=== PATIENT | female | born 1940 | race Caucasian/White ===

== ENCOUNTER 2016-11-09 14:33 | Emergency (ER) | payer OTHER ==
[2016-11-09 14:38] VITALS: BP 116/60; PULSE 69; BMI 20.2
--- NOTE | 2016-11-09 16:01 | PDOC ---
History of Present Illness <Duke Burden - Last Filed: 11/09/16 17:39> - General History Source: Patient, Spouse, Old Records Exam Limitations: No Limitations - History of Present Illness Initial Comments: 11/09/16 16:38 The patient is a 76 year old female, with a significant past medical history of asthma, COPD, hyperlipidemia, diabetes, TIA, hiatal hernia and mild progressive dementia, who presents to the emergency department with right eye redness and blurry vision since earlier this morning. The patients is with her in the ED. He states that the patient was endorsing a right sided headache this morning which has now resolved. Shortly after the onset of the headache, the patient began experiencing blurry vision out of the right eye in addition to right eye redness. The patient denies any eye pain. The patient denies any trauma to the eye. The patient was subsequently brought to the ED for further evaluation. Allergies: Diatrizoate Meglumine, Diatrizoate Sodium, CT scan dye. Past Surgical History: Appendectomy; Right Rotator Cuff Surgery. Social History: Non smoker. Denies alcohol or drug use. PCP: Dr. Souza <Katie Meza - Last Filed: 11/09/16 17:45> - General Chief Complaint: Headache Stated Complaint: RED RT EYE Time Seen by Provider: 11/09/16 16:01 Past History - Past Medical History Anemia: No Asthma: Yes Cancer: No Cardiac Disorders: (SLIGHT RT SIDED CHEST PAIN 12/13/2011) CVA: Yes (TIA) COPD: Yes CHF: No Dementia: No Diabetes: Yes (IDDM) GI Disorders: Yes (HIATAL HERNIA) Disorders: No HTN: No Hypercholesterolemia: Yes Liver Disease: No Seizures: No Thyroid Disease: No - Surgical History Abdominal Surgery: No Appendectomy: Yes Cardiac Surgery: No Cholecystectomy: No Lung Surgery: No Neurologic Surgery: No Orthopedic Surgery: Yes (RT ROTATED CUFF SHOULDER SURGERY) - Immunization History Immunization Up to Date: Yes - Psycho/Social/Smoking Cessation Hx Anxiety: No Suicidal Ideation: No Smoking Status: No Smoking History: Never smoked Have you smoked in the past 12 months: No Number of Cigarettes Smoked Daily: 0 Hx Alcohol Use: No Drug/Substance Use Hx: No Substance Use Type: None Hx Substance Use Treatment: No <Duke Burden - Last Filed: 11/09/16 17:39> <Katie Meza - Last Filed: 11/09/16 17:45> - Past Medical History Allergies/Adverse Reactions: Allergies Allergy/AdvReac Type Severity Reaction Status Date / Time diatrizoate meglumine Allergy Severe Verified 11/09/16 14:39 [From [facility]] diatrizoate sodium Allergy Severe Verified 11/09/16 14:39 [From [facility]] ct scan dye Allergy Severe Difficulty Uncoded 11/09/16 14:39 Breathing Home Medications: Ambulatory Orders Albuterol 0.083% Nebulizer Suri [Ventolin 0.083% Nebulizer Soln -] 1 neb NEB ASDIR PRN 05/12/14 Albuterol Sulfate Inhaler - [Ventolin HFA Inhaler -] 1 - 2 inh PO ASDIR PRN Alprazolam 0.25 mg PO BID PRN 05/12/14 Budesonide/Formeterol Fumarate [SYMBICORT 160/4.5mcg -] 2 inh PO BID 05/12/14 Insulin (Levemir) [Levemir Flexpen -] 9 units SQ BID 05/12/14 Insulin Lispro Protamin/Lispro [Humalog Mix 75-25 Kwikpen] 100 unit SQ ASDIR Memantine HCl [Namenda Xr] 28 mg PO DAILY 05/12/14 Montelukast Na [Singulair -] 10 mg PO HS 05/12/14 Ranitidine [Zantac -] 150 mg PO BID 05/12/14 Rivastigmine [Exelon Patch 4.6MG/24 Hours -] 1 each TD DAILY 05/12/14 Simvastatin [Zocor -] 20 mg PO HS 05/12/14 Tiotropium [place] [Spiriva] 1 inh PO DAILY 05/12/14 Albuterol 0.083% Nebulizer Suri [Ventolin 0.083%] 1 neb NEB Q4H PRN 09/23/14 Albuterol Sulfate Inhaler - [Ventolin HFA Inhaler -] 1 - 2 inh PO Q4H PRN Alprazolam 0.25 mg PO BID 09/23/14 Budesonide/Formeterol Fumarate [SYMBICORT 160/4.5mcg -] 1 inh PO BID 09/23/14 Escitalopram Oxalate [Lexapro -] 10 mg PO DAILY 09/23/14 Glipizide [Glipizide ER] 5 mg PO DAILY 09/23/14 Insulin (Levemir) [Levemir Flexpen -] 8 units SQ BID 09/23/14 Insulin NPL/Insulin Lispro [Humalog Mix 75-25 Vial] 0 unit SQ ASDIR 09/23/14 Memantine HCl [Namenda Xr] 28 mg PO DAILY 09/23/14 Montelukast Na [Singulair -] 10 mg PO HS 09/23/14 Simvastatin [Zocor -] 20 mg PO HS 09/23/14 Tiotropium [place] [Spiriva -] 1 inh PO DAILY 09/23/14 Review of Systems - Review of Systems Able to Perform ROS?: Yes Comments:: 11/09/16 16:35 CONSTITUTIONAL: No fever, no chills, no fatigue EYES: +Right eye redness, Blurry vision ENT: No ear pain, no sore throat CARDIOVASCULAR: No chest pain, no palpitations RESPIRATORY: No cough, no SOB GI: No abdominal pain, no nausea, no vomiting, no constipation, no diarrhea GENITOURINARY: No dysuria, no frequency, no hematuria MUSKULOSKELETAL: No back pain, no joint pain, no myalgias SKIN: No rash NEURO: No headache <Katie Meza - Last Filed: 11/09/16 17:45> *Physical Exam - Vital Signs Last Vital Signs Temp Pulse Resp BP Pulse Ox 69 16 116/60 100 11/09/16 14:34 11/09/16 14:34 11/09/16 14:34 11/09/16 14:34 - Physical Exam Comments: EYES: OD: VA-Patient is able to count fingers at 2 feet with corrective lenses ; lids are normal; + extensive subconjunctival hemorrhage; cornea is clear; pupil is round, 2 mm, reactive to light; Iris is intact; OS: VA-20/40; lids and adnexa are within normal; cornea and conjunctiva are clear; pupil is round, 2 mm, reactive to light; Iris is intact; extraocular movements are intact bilaterally <Duke Burden - Last Filed: 11/09/16 17:39> - Vital Signs Last Vital Signs Temp Pulse Resp BP Pulse Ox 69 16 116/60 100 11/09/16 14:34 11/09/16 14:34 11/09/16 14:34 11/09/16 14:34 - Physical Exam Comments: 11/09/16 16:23 CONSTITUTIONAL: Well-appearing; well-nourished; in no apparent distress. HEAD: Normocephalic; atraumatic. ENMT: External appears normal; normal oropharynx. NECK: Supple; non-tender; no cervical lymphadenopathy. CARD: Normal S1, S2; no murmurs, rubs, or gallops. RESP: Normal chest excursion with respiration; breath sounds clear and equal bilaterally; no wheezes, rhonchi, or rales. ABD: Soft, non-distended; non-tender; no palpable organomegaly, no palpable hernias. EXT: Normal ROM in all four extremities; non-tender to palpation; distal pulses intact. SKIN: Warm, dry, no rash. NEURO: No focal neurological deficiencies. <Katie Meza - Last Filed: 11/09/16 17:45> Medical Decision Making - Medical Decision Making 11/09/16 17:41 Patient 76-year-old female with history of diabetes, dementia and asthma presents with atraumatic right subconjunctival hemorrhage and right temporal headache that had resolved shortly prior to arrival. Patient and her report the headache is typical and does not represent worst headache of her life. On physical exam, patient has an extensive subconjunctival hemorrhage in her visual acuity is limited to counting fingers at 2 feet with corrective lenses. I discussed the case with Dr. Mohr of ophthalmology. Patient's visual acuity is at baseline. At this time I do not suspect glaucoma or any other potentially vision threatening pathology. Will discharge with scheduled follow- up and subconjunctival hemorrhage instructions. <Duke Burden - Last Filed: 11/09/16 17:39> - Medical Decision Making 11/09/16 16:19 Call placed to patient's talent development consultant Dr. Luis A Mohr at 16: 15. Connected and case discussed. <Katie Meza - Last Filed: 11/09/16 17:45> *DC/Admit/Observation/Transfer - Attestations Physician Attestion: 11/09/16 17:39 The documentation was prepared by the scribe under my direct supervision. I have reviewed the documentation which correctly represents the findings, medical decision-making and critical action taken by me. <Duke Burden - Last Filed: 11/09/16 17:39> - Attestations Scribe Attestion: 11/09/16 16:14 Documentation prepared by Katie Meza, acting as medical records supervisor for Duke Burden MD. <Katie Meza - Last Filed: 11/09/16 17:45> Diagnosis at time of Disposition: Subconjunctival hemorrhage Qualifiers: Laterality: right Qualified Code(s): H11.31 - Conjunctival hemorrhage, right eye - Discharge Dispostion Disposition: HOME Condition at time of disposition: Stable - Referrals Referrals: David Souza MD [Primary Care Provider] - Luis A Mohr [Staff Physician] - - Patient Instructions Printed Discharge Instructions: DI for Subconjunctival Hemorrhage
== END 2016-11-09 16:53 | disposition home or self-care (01) ==
LOC: JER 14:33
DX: H11.31 Conjunctival hemorrhage, right eye (principal); E11.9 Type 2 diabetes mellitus without complications; Z79.4 Long term (current) use of insulin; E78.00 Pure hypercholesterolemia, unspecified; Z86.73 Personal history of transient ischemic attack (TIA), and cerebral infarction without residual deficits; Z87.09 Personal history of other diseases of the respiratory system
CPT/HCPCS: 99281-25

== ENCOUNTER 2017-03-05 23:12 | Observation (INO) | payer OTHER ==
[2017-03-05] MEDS ORDERED: ASPIRIN 81 MG CHEWABLE TABLETS PO ONE (23:44)
--- NOTE | 2017-03-05 23:44 | PDOC ---
History of Present Illness - General History Source: Patient Exam Limitations: No Limitations <Bailey Pool - Last Filed: 03/06/17 01:48> <Gaby Montejo - Last Filed: 03/07/17 02:10> - General Stated Complaint: DIFFICULTY BREATHING Time Seen by Provider: 03/05/17 23:31 - History of Present Illness Initial Comments: 03/05/17 23:53 The patient is a 76 year old female with past medical history of dementia, COPD , asthma, IDDM, hyperlipidemia, and TIA who arrives to the ED via EMS secondary to a syncopal episode before arrival. As per the family, the patient was sitting at the table when she began to slump down in her chair and remained unarousable for about 15 minutes. When she regained consciousness, she complained of mild shortness of breath in which the family administered her Ventolin inhaler. In the ED the patient denies any complaints and cannot provide much history secondary to her dementia. She denies any fever or illness. Allergies: Diatrizoate Social history: The patient lives at home with her . PCP: [facility] Souza ([facility]) Past History <Bailey Pool - Last Filed: 03/06/17 01:48> - Past Medical History Anemia: No Asthma: Yes Cancer: No Cardiac Disorders: (SLIGHT RT SIDED CHEST PAIN 12/13/2011) CVA: Yes (TIA) COPD: Yes CHF: No Dementia: No Diabetes: Yes (IDDM) GI Disorders: Yes (HIATAL HERNIA) Disorders: No HTN: No Hypercholesterolemia: Yes Liver Disease: No Seizures: No Thyroid Disease: No - Surgical History Abdominal Surgery: No Appendectomy: Yes Cardiac Surgery: No Cholecystectomy: No Lung Surgery: No Neurologic Surgery: No Orthopedic Surgery: Yes (RT ROTATED CUFF SHOULDER SURGERY) - Immunization History Immunization Up to Date: Yes - Psycho/Social/Smoking Cessation Hx Anxiety: No Suicidal Ideation: No Smoking Status: No Smoking History: Never smoked Have you smoked in the past 12 months: No Number of Cigarettes Smoked Daily: 0 Hx Alcohol Use: No Drug/Substance Use Hx: No Substance Use Type: None Hx Substance Use Treatment: No <GustaboGiorgioa Trini - Last Filed: 03/07/17 02:10> - Past Medical History Allergies/Adverse Reactions: Allergies Allergy/AdvReac Type Severity Reaction Status Date / Time diatrizoate meglumine Allergy Severe Verified 03/05/17 23:57 [From [facility]] diatrizoate sodium Allergy Severe Verified 03/05/17 23:57 [From [facility]] ct scan dye Allergy Severe Difficulty Uncoded 03/05/17 23:57 Breathing Home Medications: Ambulatory Orders Albuterol 0.083% Nebulizer Suri [Ventolin 0.083% Nebulizer Soln -] 1 neb NEB ASDIR PRN 05/12/14 Albuterol Sulfate Inhaler - [Ventolin HFA Inhaler -] 1 - 2 inh PO ASDIR PRN Insulin (Levemir) [Levemir Flexpen -] 14 units SQ BID 05/12/14 Memantine HCl [Namenda Xr] 28 mg PO DAILY 05/12/14 Montelukast Na [Singulair -] 10 mg PO HS 05/12/14 Rivastigmine [Exelon Patch 4.6MG/24 Hours -] 1 each TD DAILY 05/12/14 Simvastatin [Zocor -] 20 mg PO HS 05/12/14 Glipizide [Glipizide ER] 5 mg PO AC 09/23/14 Tiotropium [place] [Spiriva -] 1 inh PO DAILY 09/23/14 Cyanocobalamin [Vitamin B12 -] 1,000 mcg PO DAILY 03/06/17 Insulin (Novolog) [Novolog Flexpen] 0 units SQ ACHS 03/06/17 Cardiac Specific PMH - Complaint Specific PMHX Angina: No Pacemaker: No Pulmonary Embolus: No <Gaby Montejo - Last Filed: 03/07/17 02:10> Review of Systems - Review of Systems Able to Perform ROS?: No (dementia) <Bailey Pool - Last Filed: 03/06/17 01:48> *Physical Exam <Bailey Pool - Last Filed: 03/06/17 01:48> <Gaby Montejo - Last Filed: 03/07/17 02:10> - Vital Signs Last Vital Signs Temp Pulse Resp BP Pulse Ox 98.2 F 76 17 127/78 98 03/05/17 23:13 03/06/17 06:20 03/06/17 06:20 03/06/17 06:20 03/06/17 06:20 - Physical Exam Comments: 03/05/17 23:54 GENERAL: Well developed, well nourished. Awake and alert. No acute distress. HEENT: Normocephalic, atraumatic. PERRLA, EOMI. No conjunctival pallor. Sclera are non- icteric. Moist mucous membranes. Oropharynx is clear. NECK: Supple. Full ROM. No JVD. Carotid pulses 2+ and symmetric, without bruits. No thyromegaly. No lymphadenopathy. CARDIOVASCULAR: Regular rate and rhythm. No murmurs, rubs, or gallops. Distal pulses are 2+ and symmetric. PULMONARY: No evidence of respiratory distress. Lungs clear to auscultation bilaterally. No wheezing, rales or rhonchi. ABDOMINAL: Soft. Non-tender. Non-distended. No rebound or guarding. No organomegaly. Normoactive bowel sounds. MUSCULOSKELETAL Normal range of motion at all joints. No bony deformities or tenderness. No CVA tenderness. EXTREMITIES: No cyanosis. No clubbing. No edema. No calf tenderness. SKIN: Warm and dry. Normal capillary refill. No rashes. No jaundice. NEUROLOGICAL: Alert, awake, appropriate. Cranial nerves 2-12 intact. No deficits to light touch and temperature in face, upper extremities and lower extremities. No motor deficits in the in face, upper extremities and lower extremities. Normoreflexic in the upper and lower extremities. Normal speech. Toes are down-going bilaterally. Gait is normal without ataxia. PSYCHIATRIC: Cooperative. Good eye contact. Appropriate mood and affect. (Bailey Pool) Heart Score/ECG Review <[facility] - Last Filed: 03/06/17 01:48> - History History: Slightly suspicious - Electrocardiogram EKG: Normal - Age Age: >/= 65 - Risk Factors Risk Factors Heart Score: Yes Hx Hypertension, Yes Hx Diabetes Based on the list above the patient has:: 1-2 risk factors - Troponin Troponin: </= normal limit - Score Heart Score - Total: 3 - ECG Intrepretation Rhythm: Regular Rhythm - [place]: Normal - P and TN Prominent R with upright T in V1 (true posterior [place]): No Delta Wave(s) Present: No WPW: No - QRS Poor R Wave Progression: No Q Wave Present: No - ST and T Early Repolarization: No Non Specific ST-T Wave changes: No Flattened T Waves: No Prolonged Q-T Interval: No - ECG Impressions Normal ECG: Yes Non-specific ST Elevation: No Ischemic Changes: No Bradycardia: No [place] Pointes: No WPW: No <Gaby Montejo - Last Filed: 03/07/17 02:10> - ECG Intrepretation Comment:: 03/06/17 00:17 ECG obtained at 0:10 normal sinus at 66bpm (Bailey Pool) ED Treatment Course - LABORATORY CBC & Chemistry Diagram: 03/06/17 00:01 03/06/17 00:01 <Bailey Pool - Last Filed: 03/06/17 01:48> - LABORATORY CBC & Chemistry Diagram: 03/06/17 00:01 03/06/17 00:01 <Gaby Montejo - Last Filed: 03/07/17 02:10> - ADDITIONAL ORDERS Additional order review: 03/06/17 00:01 RBC 4.54 MCV 94.6 MCHC 33.6 RDW 13.3 MPV 8.6 Neutrophils % 68.4 Lymphocytes % 19.4 D Monocytes % 10.8 H Eosinophils % 0.7 Basophils % 0.7 - RADIOLOGY Radiology Studies Ordered: Category Date Time Status HEAD CT WITHOUT CONTRAST [CT] Stat CT Scan 03/06/17 00:01 Completed CHEST X-RAY PORTABLE* [RAD] Stat Radiology 03/05/17 23:45 Completed Radiograph Interpretation: 03/06/17 01:24 EXAM: CT brain without contrast IMAGES: 368 EXAM DATE AND TIME: 2017-03-06 00: 16:24.0 REASON FOR EXAM: Unresponsive COMPARISON: No FINDINGS: Involutional changes. No hemorrhage. No mass. No detectable infarct. Osseous structures are intact. THIS DOCUMENT HAS BEEN ELECTRONICALLY SIGNED Joby Wong MD ([facility]) - Medications Given in the ED: ED Medications Discontinued Medications Generic Name Dose Route Start Last Admin Trade Name Freq PRN Reason Stop Dose Admin Aspirin 162 mg 03/05/17 23:44 03/06/17 02:45 Asa - PO 03/05/17 23:45 Not Given ONCE ONE Medical Decision Making <Bailey Pool - Last Filed: 03/06/17 01:48> <Gaby Montejo - Last Filed: 03/07/17 02:10> - Medical Decision Making 03/06/17 01:48 Phone call placed to Dr. Souza, awaiting call back. (Bailey Pool) 03/06/17 00:55 76 yo female FRANCI because her said she had been slumped over the arm of her chair and not responsive for 15 minutes. Her reported that she appeared to have respiratory distress , once she woke up and was given her ventolin inhaler, -she was 100% pulse ox on room air in the emergency department -upon arrival the patient was alert and conversant.she has dementia and is not a good historian -ekg is unremarkable nsr @ 66 bpm 03/06/17 02:12 CAT scan of the head was negative for any acute intracranial pathology Urinalysis was negative Chest x-ray did not show any acute infiltrates CBC showed a mild leukocytosis of 12,000, but she does take steroids daily (Gaby Montejo) *DC/Admit/Observation/Transfer <Bailey Pool - Last Filed: 03/06/17 01:48> <Gaby Montejo - Last Filed: 03/07/17 02:10> Diagnosis at time of Disposition: AMA - Signed out against medical advice, Syncope - Discharge Dispostion Disposition: AGAINST MEDICAL ADVICE - Referrals Referrals: David Souza MD [Primary Care Provider] - - Patient Instructions Printed Discharge Instructions: DI for Syncope in Adults (Fainting) Additional Instructions: Follow up with your doctor. Be sure to return if symptoms reoccur or any other concerns. Continue medications as prescribed. - Attestations Scribe Attestion: 03/05/17 23:55 Documentation prepared by Bailey Pool, acting as medical front desk coordinator for Gaby Montejo MD. (Bailey Pool)
[2017-03-06 00:06] VITALS: TEMP 98.2; BMI 20.7
[2017-03-06 00:28] LABS: BASOPHIL 0.7 % (0-2.0); EOSINOPHIL 0.7 % (0-4.5); MCH 31.7 pg (25.7-33.7); MCHC 33.6 g/dl (32.0-36.0); MEAN CELL VOLUME 94.6 fl (80-96); MEAN PLT VOLUME 8.6 fl (7.5-11.1); NEUTROPHILS 68.4 % (42.8-82.8); PLATELET COUNT 259 K/MM3 (134-434); RDW 13.3 % (11.6-15.6); WHITE BLOOD COUNT 6.7 K/mm3 (4.0-10.0)
[2017-03-06 00:41] LABS: URINE APPEARANCE CLEAR; URINE BILIRUBIN NEGATIVE (NEGATIVE); URINE BLOOD NEGATIVE (NEGATIVE); URINE COLOR STRAW; URINE GLUCOSE (UA) 3+ (NEGATIVE); URINE KETONE NEGATIVE (NEGATIVE); URINE LEUK ESTERASE TRACE (NEGATIVE); URINE NITRITE NEGATIVE (NEGATIVE); URINE PROTEIN NEGATIVE (NEGATIVE); URINE UROBILINOGEN NEGATIVE mg/dL (0.2-1.0)
[2017-03-06 00:43] LABS: INR 1.13 (0.82-1.09); PROTHROMBIN TIME (PATIENT) 12.5 SEC (9.98-11.88)
[2017-03-06 00:51] LABS: ALBUMIN 3.8 g/dl (3.4-5.0); ANION GAP 8 (8-16); BILIRUBIN,TOTAL 0.4 mg/dL (0.2-1.0); CALCIUM 9.4 mg/dL (8.5-10.1); CO2 30 mmol/L (21-32); CREATININE 0.7 mg/dL (0.55-1.02); GLUCOSE,RANDOM 218 mg/dL (74-106); MAGNESIUM 2.4 mg/dL (1.8-2.4); SGOT/AST 19 U/L (15-37); SGPT/ALT 26 U/L (12-78); TOT PROT 7.2 g/dl (6.4-8.2)
[2017-03-06 00:54] LABS: ALK PHOS 73 U/L (45-117); CPK 71 IU/L (26-192); TROPONIN I < 0.02 ng/ml (0.00-0.05)
[2017-03-06 01:13] LABS: URINE WBC 4 /hpf (3-5)
[2017-03-06] MEDS ORDERED: ALBUTEROL SO4 0.083% IH SOL 2.5 MG/3 ML VIAL.NEB. NEB PRN (05:33)
[2017-03-06 06:45] VITALS: BP 127/78; PULSE 76
[2017-03-06] MEDS ORDERED: glipiZIDE-XL 5 MG TAB.ER.24 PO SCH (07:00)
[2017-03-06] MEDS ORDERED: INSULIN DETEMIR 100 UNITS/ML MDV SQ SCH (07:00)
[2017-03-06] MEDS ORDERED: RIVASTIGMINE 4.6 MG/24 HOURS TRANSDERMAL PATCH TD SCH (10:00)
[2017-03-06] MEDS ORDERED: CYANOCOBALAMIN 1,000 MCG TABLET (FP) PO SCH (10:00)
[2017-03-06] MEDS ORDERED: ACLIDINIUM BROMIDE 400 MCG/INH AERO.POWD IH SCH (10:00)
--- NOTE | 2017-03-06 13:45 | EKG ---
Test Reason : Blood Pressure : / mmHG Vent. Rate : 066 BPM Atrial Rate : 066 BPM P-R Int : 128 ms QRS Dur : 068 ms QT Int : 386 ms P-R-T Axes : 054 035 050 degrees QTc Int : 404 ms NORMAL SINUS RHYTHM NORMAL ECG WHEN COMPARED WITH ECG OF 12-MAY-2014 21:33, NO SIGNIFICANT CHANGE WAS FOUND BASELINE ARTIFACT REPEAT EKG IF CLINICALLY INDICATED Confirmed by MELISA DALAL MD ([id number]) on 03/06/2017 1:45:19 PM Referred By: Confirmed By:MELISA DALAL MD
[2017-03-06] MEDS ORDERED: MONTELUKAST NA 10 MG TABLET PO SCH (22:00)
[2017-03-06] MEDS ORDERED: ATORVASTATIN CA 10 MG TABLET (FP) PO SCH (22:00)
== END 2017-03-06 06:29 | disposition left against medical advice (07) ==
LOC: JER 23:12 → UNDOADMOB 03-06 02:10 → JERBED 03-06 02:10 → UNDOADMOB 03-06 02:57
PROVIDERS: ADMIT Internal Medicine; ATTEND Internal Medicine
DX: R55 Syncope and collapse (principal); R06.02 Shortness of breath; I10 Essential (primary) hypertension; J44.9 Chronic obstructive pulmonary disease, unspecified; E78.5 Hyperlipidemia, unspecified; E11.9 Type 2 diabetes mellitus without complications
CPT/HCPCS: 36415; 70450-TC; 71010-TC; 80053; 81003; 81015; 83735; 84484; 85025; 85610; 86850; 86900; 86901; 87086; 93005; 93010; 99284-25; G0378

== ENCOUNTER 2017-03-15 22:42 | Observation (INO) | payer OTHER ==
--- NOTE | 2017-03-15 22:49 | PDOC ---
History of Present Illness - General Chief Complaint: Respiratory Stated Complaint: COUGH, SOB Time Seen by Provider: 03/15/17 22:49 History Source: Patient, Spouse, Old Records Exam Limitations: Dementia - History of Present Illness Initial Comments: 03/15/17 23:01 76-year-old female with history of diabetes, hypertension, TIA, hyperlipidemia, COPD and dementia presents to the emergency Department with complaints of chest tightness, belching and shortness of breath that started approximately 1 hour prior to arrival. The patient states that she has had these same symptoms before when it was found that she has esophageal motility issues. The patient's administered an albuterol treatment at home with some relief but not complete relief. The patient is unable to quantify the chest tightness. She denies nausea, vomiting, abdominal pain. She denies fevers and chills. The patient's states that she had a similar episode last night but it was resolved after an albuterol nebulizer treatment. Of note, the patient was seen in the emergency department on March 05 with a syncopal episode but left AMA prior to admission. Past History - Past Medical History Allergies/Adverse Reactions: Allergies Allergy/AdvReac Type Severity Reaction Status Date / Time diatrizoate meglumine Allergy Severe Verified 03/05/17 23:57 [From [facility]] diatrizoate sodium Allergy Severe Verified 03/05/17 23:57 [From [facility]] ct scan dye Allergy Severe Difficulty Uncoded 03/05/17 23:57 Breathing Home Medications: Ambulatory Orders Albuterol 0.083% Nebulizer Suri [Ventolin 0.083% Nebulizer Soln -] 1 neb NEB ASDIR PRN 05/12/14 Albuterol Sulfate Inhaler - [Ventolin HFA Inhaler -] 1 - 2 inh PO ASDIR PRN Insulin (Levemir) [Levemir Flexpen -] 14 units SQ BID 05/12/14 Memantine HCl [Namenda Xr] 28 mg PO DAILY 05/12/14 Montelukast Na [Singulair -] 10 mg PO HS 05/12/14 Rivastigmine [Exelon Patch 4.6MG/24 Hours -] 1 each TD DAILY 05/12/14 Simvastatin [Zocor -] 20 mg PO HS 05/12/14 Glipizide [Glipizide ER] 5 mg PO AC 09/23/14 Tiotropium [place] [Spiriva -] 1 inh PO DAILY 09/23/14 Cyanocobalamin [Vitamin B12 -] 1,000 mcg PO DAILY 03/06/17 Insulin (Novolog) [Novolog Flexpen] 0 units SQ ACHS 03/06/17 Anemia: No Asthma: Yes Cancer: No Cardiac Disorders: (SLIGHT RT SIDED CHEST PAIN 12/13/2011) CVA: Yes (TIA) COPD: Yes CHF: No Dementia: No Diabetes: Yes GI Disorders: Yes (HIATAL HERNIA) Disorders: No HTN: Yes Hypercholesterolemia: Yes Liver Disease: No Seizures: No Thyroid Disease: No - Surgical History Abdominal Surgery: No Appendectomy: Yes Cardiac Surgery: No Cholecystectomy: No Lung Surgery: No Neurologic Surgery: No Orthopedic Surgery: Yes (RT ROTATED CUFF SHOULDER SURGERY) - Immunization History Immunization Up to Date: Yes - Psycho/Social/Smoking Cessation Hx Anxiety: No Suicidal Ideation: No Smoking Status: No Smoking History: Never smoked Have you smoked in the past 12 months: No Number of Cigarettes Smoked Daily: 0 Hx Alcohol Use: No Drug/Substance Use Hx: No Substance Use Type: None Hx Substance Use Treatment: No Review of Systems - Review of Systems Able to Perform ROS?: Yes Is the patient limited [place]anian proficient: No Constitutional: Yes: See HPI HEENTM: No: Symptoms Reported Respiratory: Yes: See HPI. No: Cough Cardiac (ROS): Yes: See HPI ABD/GI: No: Symptoms Reported : No: Symptoms Reported Musculoskeletal: No: Symptoms Reported Integumentary: No: Symptoms Reported Neurological: No: Symptoms reported *Physical Exam - Physical Exam Comments: 03/15/17 23:03 GENERAL: Well developed, well nourished. Awake and alert. No acute distress. HEENT: Normocephalic, atraumatic. PERRLA, EOMI. No conjunctival pallor. Sclera are non- icteric. Moist mucous membranes. Oropharynx is clear. NECK: Supple. Full ROM. No JVD. No lymphadenopathy. CARDIOVASCULAR: Regular rate and rhythm. No murmurs, rubs, or gallops. Distal pulses are 2+ and symmetric. PULMONARY: No evidence of respiratory distress. There is good air movement with bilateral expiratory wheezes. ABDOMINAL: Soft. Non-tender. Non-distended. No rebound or guarding. No organomegaly. Normoactive bowel sounds. MUSCULOSKELETAL Normal range of motion at all joints. No bony deformities or tenderness. No CVA tenderness. EXTREMITIES: No cyanosis. No clubbing. No edema. No calf tenderness. SKIN: Warm and dry. Normal capillary refill. No rashes. No jaundice. NEUROLOGICAL: Alert, awake, appropriate. Cranial nerves 2-12 intact. Grossly non-focal exam. PSYCHIATRIC: Cooperative. Good eye contact. Appropriate mood and affect. ED Treatment Course - LABORATORY CBC & Chemistry Diagram: 03/15/17 23:12 03/15/17 23:12 Medical Decision Making - Medical Decision Making 03/15/17 23:03 76-year-old female with multiple medical problems including hypertension, diabetes, TIA, hyperlipidemia, COPD and dementia who presents to the emergency department with chest tightness, shortness of breath and belching times one hour. She is saturating well on room air but has bilateral expiratory wheezes and is in no acute distress. Differential diagnosis includes but is not limited to: COPD exacerbation, pneumonia, GERD, ACS, electrolyte abnormality, toxic/ metabolic derangement. Plan: 1. EKG 2. Chest x-ray 3. Labs 4. DuoNeb treatment 5. Urine analysis 6. Observe and reevaluate 03/16/17 00:07 Addendum: Labs were reviewed and are noted in the EMR. Chest x-ray is normal appearing. The EKG shows normal sinus rhythm at 70 bpm with a normal axis, intervals and no acute ST segment changes. The patient is feeling somewhat improved but given her age, cardiac risk factors and the fact that she hasn't had a cardiac workup in the past 4 years and had a syncopal episode 10 days ago I will recommend admission to telemetry for serial cardiac markers as well as stress test. *DC/Admit/Observation/Transfer Diagnosis at time of Disposition: Chest pain, Dementia, Shortness of breath - Discharge Dispostion Condition at time of disposition: Stable Admit: Yes - Referrals Referrals: David Souza MD [Primary Care Provider] -
[2017-03-15] MEDS ORDERED: ALBUTEROL SO4 2.5/IPRATROPIUM 0.5 INH SOL 3 ML VIAL.NEB. NEB ONE ×2 (23:00→23:03)
[2017-03-15 23:26] LABS: BASOPHIL 0.6 % (0-2.0); EOSINOPHIL 0.9 % (0-4.5); MCH 32.1 pg (25.7-33.7); MCHC 34.5 g/dl (32.0-36.0); MEAN CELL VOLUME 92.9 fl (80-96); MEAN PLT VOLUME 7.7 fl (7.5-11.1); NEUTROPHILS 67.5 % (42.8-82.8); PLATELET COUNT 253 K/MM3 (134-434); RDW 12.6 % (11.6-15.6); WHITE BLOOD COUNT 6.5 K/mm3 (4.0-10.8)
[2017-03-15 23:31] LABS: PH,URINE 6.5 (4.5-8); URINE APPEARANCE Clear; URINE BILIRUBIN Negative (NEGATIVE); URINE BLOOD Negative (NEGATIVE); URINE COLOR YELLOW; URINE GLUCOSE (UA) 2+ (NEGATIVE); URINE KETONE Negative (NEGATIVE); URINE LEUK ESTERASE Negative (NEGATIVE); URINE NITRITE Negative (NEGATIVE); URINE PROTEIN Negative (NEGATIVE); URINE UROBILINOGEN 0.2 (0.2-1.0)
[2017-03-15 23:37] LABS: ALBUMIN 3.8 g/dl (3.5-5.0); ALK PHOS 66 U/L (32-92); ANION GAP 7 (8-16); BILIRUBIN,TOTAL 0.8 mg/dl (0.2-1.0); CALCIUM 9.5 mg/dl (8.4-10.2); CO2 25 mmol/L (22-28); CPK 56 IU/L (26-192); CREATININE 0.7 mg/dl (0.6-1.3); GLUCOSE,RANDOM 230 mg/dl (74-106); SGOT/AST 20 U/L (10-42); SGPT/ALT 17 U/L (10-40); TOT PROT 6.8 g/dl (6.4-8.3)
[2017-03-15 23:44] LABS: TROPONIN I (DFP) < 0.03 ng/ml (0.03-0.50)
[2017-03-16] MEDS ORDERED: SODIUM CHLORIDE 1,000 ML IV SCH (00:15)
[2017-03-16 02:01] VITALS: BMI 20.4
[2017-03-16] MEDS: ALBUTEROL SO4 0.083% IH SOL 2.5 MG/3 ML VIAL.NEB. NEB SCH ×3 (06:55→18:27)
[2017-03-16] MEDS ORDERED: INSULIN SLIDING SCALE (NOVOLOG) 1 VIAL SQ SCH ×2 (07:00→22:00)
[2017-03-16] MEDS ORDERED: glipiZIDE-XL 5 MG TAB.ER.24 PO SCH (07:00)
[2017-03-16 07:25] LABS: CPK 64 IU/L (26-192)
[2017-03-16 07:26] LABS: ANION GAP 9 (8-16); CALCIUM 9.5 mg/dl (8.4-10.2); CO2 26 mmol/L (22-28); CREATININE 0.6 mg/dl (0.6-1.3); GLUCOSE,RANDOM 211 mg/dl (74-106); PHOSPHOROUS 2.7 mg/dl (2.5-4.6)
[2017-03-16 07:27] LABS: BASOPHIL 0.1 % (0-2.0); MCH 31.3 pg (25.7-33.7); MCHC 33.9 g/dl (32.0-36.0); MEAN CELL VOLUME 92.5 fl (80-96); MEAN PLT VOLUME 8.6 fl (7.5-11.1); NEUTROPHILS 77.5 % (42.8-82.8); PLATELET COUNT 269 K/MM3 (134-434); RDW 12.9 % (11.6-15.6); WHITE BLOOD COUNT 8.8 K/mm3 (4.0-10.8)
[2017-03-16 07:45] LABS: TROPONIN I (DFP) < 0.03 ng/ml (0.03-0.50)
--- NOTE | 2017-03-16 08:27 | HP ---
CHIEF COMPLAINT: chest pain PCP: Dr Souza HISTORY OF PRESENT ILLNESS: Patient is a 76 y/o female with a past medical history of IDDM, hypertension, TIA, hyperlipidemia, copd and dementia. Patient reports at 2100, yesterday (03/15) she developed an episode of substernal chest tightness, shortness of breath , with a feeling of indigestion. Patient denies any radiation of the pain. She denies any dizziness or nausea. She was administered an albuterol nebulizer with limited relief as result, she sought evaluation in the emergency department. In addition, she was evaluated in the emergency department of this [facility] on March 05 s/p syncopal episode and patient declined admission, she left AMA. ER course was notable for: (1) ekg nsr normal axis (2) troponin 0.03 (3)chest xray no acute pathology Recent Travel: none PAST MEDICAL HISTORY: iddm, htn, tia, hld, copd, dementia. PAST SURGICAL HISTORY: rotated cuff surgery Social History: resides at home with her Smoking: Alcohol: Drugs: Family History: Allergies diatrizoate meglumine [From MAYGastrosandra] Allergy (Severe, Verified 03/05/17 23 :57) Difficulty Breathing diatrizoate sodium [From MAYGastrosandra] Allergy (Severe, Verified 03/05/17 23:57 ) Difficulty Breathing ct scan dye Allergy (Severe, Uncoded 03/05/17 23:57) Difficulty Breathing HOME MEDICATIONS: Home Medications Medication Instructions Recorded Albuterol 0.083% Nebulizer Suri 1 neb NEB ASDIR PRN 05/12/14 [Ventolin 0.083% Nebulizer Soln -] Albuterol Sulfate Inhaler - 1 - 2 inh PO ASDIR PRN 05/12/14 [Ventolin HFA Inhaler -] Insulin (Levemir) [Levemir Flexpen 14 units SQ BID 05/12/14 -] Memantine HCl [Namenda Xr] 28 mg PO DAILY 05/12/14 Montelukast Na [Singulair -] 10 mg PO HS 05/12/14 Rivastigmine [Exelon Patch 1 each TD DAILY 05/12/14 4.6MG/24 Hours -] Simvastatin [Zocor -] 20 mg PO HS 05/12/14 Glipizide [Glipizide ER] 5 mg PO AC 09/23/14 Tiotropium [place] [Spiriva -] 1 inh PO DAILY 09/23/14 Cyanocobalamin [Vitamin B12 -] 1,000 mcg PO DAILY 03/06/17 Insulin (Novolog) [Novolog Flexpen] 0 units SQ ACHS 03/06/17 REVIEW OF SYSTEMS CONSTITUTIONAL: Absent: fever, chills, diaphoresis, generalized weakness, malaise, loss of appetite, weight change HEENT: Absent: rhinorrhea, nasal congestion, throat pain, throat swelling, difficulty swallowing, mouth swelling, ear pain, eye pain, visual changes CARDIOVASCULAR: Present: chest pain Absent: syncope, palpitations, irregular heart rate, lightheadedness, peripheral edema RESPIRATORY: Present: shortness of breath Absent: cough, dyspnea with exertion, orthopnea, wheezing, stridor, hemoptysis GASTROINTESTINAL: Absent: abdominal pain, abdominal distension, nausea, vomiting, diarrhea, constipation, melena, hematochezia GENITOURINARY: Absent: dysuria, frequency, urgency, hesitancy, hematuria, flank pain, genital pain MUSCULOSKELETAL: Absent: myalgia, arthralgia, joint swelling, back pain, neck pain SKIN: Absent: rash, itching, pallor HEMATOLOGIC/IMMUNOLOGIC: Absent: easy bleeding, easy bruising, lymphadenopathy, frequent infections ENDOCRINE: Absent: unexplained weight gain, unexplained weight loss, heat intolerance, cold intolerance NEUROLOGIC: Absent: headache, focal weakness or paresthesias, dizziness, unsteady gait, seizure, mental status changes, bladder or bowel incontinence PSYCHIATRIC: Absent: anxiety, depression, suicidal or homicidal ideation, hallucinations. PHYSICAL EXAMINATION Vital Signs - 24 hr 03/16/17 03/16/17 03/16/17 00:45 01:34 01:41 Temperature 98.0 F 98.0 F Pulse Rate 65 65 Pulse Rate [ 82 Radial] Respiratory 18 18 18 Rate Blood Pressure 117/49 117/49 Blood Pressure 134/76 [Arm] O2 Sat by Pulse 98 100 100 Oximetry (%) 03/16/17 03/16/17 05:00 06:35 Temperature 98.0 F Pulse Rate 69 Pulse Rate [ Radial] Respiratory 18 Rate Blood Pressure 119/61 Blood Pressure [Arm] O2 Sat by Pulse 100 Oximetry (%) GENERAL: Awake, alert, and fully oriented, in no acute distress. HEAD: Normal with no signs of trauma. EYES: Pupils equal, round and reactive to light, extraocular movements intact, sclera anicteric, conjunctiva clear. No lid lag. EARS, NOSE, THROAT: Ears normal, nares patent, oropharynx clear without exudates. Moist mucous membranes. NECK: Normal range of motion, supple without lymphadenopathy, JVD, or masses. LUNGS: Breath sounds equal, clear to auscultation bilaterally. No wheezes, and no crackles. No accessory muscle use. HEART: Regular rate and rhythm, normal S1 and S2 without murmur, 2/6 systolic mumur, no rub or gallop. ABDOMEN: Soft, nontender, not distended, normoactive bowel sounds, no guarding, no rebound, no masses. No hepatomegaly or splenomegaly. MUSCULOSKELETAL: Normal range of motion at all joints. No bony deformities or tenderness. No CVA tenderness. UPPER EXTREMITIES: 2+ pulses, warm, well-perfused. No cyanosis. No clubbing. No peripheral edema. LOWER EXTREMITIES: 2+ pulses, warm, well-perfused. No calf tenderness. No peripheral edema. NEUROLOGICAL: Cranial nerves II-XII intact. Normal speech. Normal gait. PSYCHIATRIC: Cooperative. Good eye contact. Appropriate mood and affect. SKIN: Warm, dry, normal turgor, no rashes or lesions noted, normal capillary refill. Laboratory Results - last 24 hr 03/16/17 03/16/17 03/16/17 06:45 06:45 06:45 WBC 8.8 D RBC 4.69 Hgb 14.7 Hct 43.4 MCV 92.5 MCH 31.3 MCHC 33.9 RDW 12.9 Plt Count 269 MPV 8.6 D Neutrophils % 77.5 Lymphocytes % 12.4 D Monocytes % 9.0 Eosinophils % 1.0 Basophils % 0.1 Sodium 136 Potassium 4.1 Chloride 101 Carbon Dioxide 26 Anion Gap 9 BUN 13 Creatinine 0.6 Random Glucose 211 H Calcium 9.5 Phosphorus 2.7 Magnesium 2.0 Creatine Kinase 64 Troponin I < 0.03 L ASSESSMENT/PLAN f/e/n - low sodium/cholesterol diet ppx - oob - scd dispo: requires 24 hour telemetry obsv Problem List - Problem (1) Chest pain Assessment/Plan: - troponin x 1 wnl, pending 2nd and 3rd - heart score 4, appreciate cardiology input - will order ASA - continuos cardiac monitoring Code(s): R07.9 - CHEST PAIN, UNSPECIFIED (2) Dementia Assessment/Plan: - continue home medications Code(s): F03.90 - UNSPECIFIED DEMENTIA WITHOUT BEHAVIORAL DISTURBANCE (3) Asthma Assessment/Plan: - no acute excerbation at this time - continue singulair, spiriva, albuterol prn Code(s): J45.909 - UNSPECIFIED ASTHMA, UNCOMPLICATED (4) Syncope Assessment/Plan: - pending echo and carotid doppler - continous cardiac monitoring Code(s): R55 - SYNCOPE AND COLLAPSE (5) IDDM (insulin dependent diabetes mellitus) Assessment/Plan: - pending hgb a1c - continue novolog, levermir, and glipizide Code(s): E11.9 - TYPE 2 DIABETES MELLITUS WITHOUT COMPLICATIONS 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 - New Patient This patient is new to me today: Yes Date on this admission: 03/16/17 - Critical Care Critical Care patient: No
[2017-03-16 09:00] LABS: CHOLESTEROL 172 mg/dl
[2017-03-16] MEDS ORDERED: CYANOCOBALAMIN 1,000 MCG TABLET (FP) PO SCH (10:00)
[2017-03-16] MEDS ORDERED: INSULIN (NOVOLOG) ASPART 100 UNITS/ML 10ML VIAL ONE ×2 (10:00→17:28)
[2017-03-16] MEDS ORDERED: ACLIDINIUM BROMIDE 400 MCG/INH AERO.POWD IH SCH (10:00)
[2017-03-16] MEDS ORDERED: ASPIRIN 81 MG CHEWABLE TABLETS PO SCH (10:00)
[2017-03-16] MEDS ORDERED: PATIENT'S OWN MEDICATION (NON-FORMULARY) (Memantine Hcl [Namenda Xr] 28 MG) PO SCH (10:00)
[2017-03-16] MEDS ORDERED: PATIENT'S OWN MEDICATION (NON-FORMULARY) (Rivastigmine 1 EACH) TD SCH (10:00)
[2017-03-16] MEDS: INSULIN DETEMIR 100 UNITS/ML MDV SQ SCH ×2 (10:02→15:25)
[2017-03-16] MEDS ORDERED: PT OWN MED DRAWER 7, Y5N ONE (10:04)
--- NOTE | 2017-03-16 12:02 | DS ---
Physical Exam: SUBJECTIVE: Patient seen and examined OBJECTIVE: Vital Signs Period Temp Pulse Resp BP Sys/Howell Pulse Ox Last 24 Hr 98.0 F-98.0 F 65-82 18-18 117-134/49-76 98-100 PHYSICAL EXAM GENERAL: The patient is awake, alert, and fully oriented, in no acute distress. HEAD: Normal with no signs of trauma. EYES: PERRL, extraocular movements intact, sclera anicteric, conjunctiva clear. ENT: Ears normal, nares patent, oropharynx clear without exudates, moist mucous membranes. NECK: Trachea midline, full range of motion, supple. LUNGS: Breath sounds equal, clear to auscultation bilaterally, no wheezes, no crackles, no accessory muscle use. HEART: Regular rate and rhythm, S1, S2 without murmur, rub or gallop. ABDOMEN: Soft, nontender, nondistended, normoactive bowel sounds, no guarding, no rebound, no hepatosplenomegaly, no masses. EXTREMITIES: 2+ pulses, warm, well-perfused, no edema. NEUROLOGICAL: Cranial nerves II through XII grossly intact. Normal speech, gait not observed. PSYCH: Normal mood, normal affect. SKIN: Warm, dry, normal turgor, no rashes or lesions noted. LABS Laboratory Results - last 24 hr 03/16/17 03/16/17 03/16/17 06:45 06:45 06:45 WBC 8.8 D RBC 4.69 Hgb 14.7 Hct 43.4 MCV 92.5 MCH 31.3 MCHC 33.9 RDW 12.9 Plt Count 269 MPV 8.6 D Neutrophils % 77.5 Lymphocytes % 12.4 D Monocytes % 9.0 Eosinophils % 1.0 Basophils % 0.1 Sodium 136 Potassium 4.1 Chloride 101 Carbon Dioxide 26 Anion Gap 9 BUN 13 Creatinine 0.6 Random Glucose 211 H Calcium 9.5 Phosphorus 2.7 Magnesium 2.0 Creatine Kinase 64 Troponin I < 0.03 L Triglycerides Cholesterol Total LDL Cholesterol HDL Cholesterol 03/16/17 07:00 WBC RBC Hgb Hct MCV MCH MCHC RDW Plt Count MPV Neutrophils % Lymphocytes % Monocytes % Eosinophils % Basophils % Sodium Potassium Chloride Carbon Dioxide Anion Gap BUN Creatinine Random Glucose Calcium Phosphorus Magnesium Creatine Kinase Troponin I Triglycerides 54 Cholesterol 172 Total LDL Cholesterol 89 HDL Cholesterol 72 HOSPITAL COURSE: Date of Admission:03/16/17 Date of Discharge: 03/16/17 Minutes to complete discharge: 45 Discharge Summary Reason For Visit: COUGH, SOB Current Active Problems Chest pain (Acute) Dementia (Acute) Hyperlipidemia (Acute) IDDM (insulin dependent diabetes mellitus) (Acute) Shortness of breath (Acute) Condition: Stable - Instructions Referrals: David Souza MD [Primary Care Provider] - - Home Medications Comprehensive Discharge Medication List: Ambulatory Orders RX: Albuterol 0.083% Nebulizer Suri [Ventolin 0.083% Nebulizer Soln -] 1 neb NEB ASDIR PRN 05/12/14 RX: Albuterol Sulfate Inhaler - [Ventolin HFA Inhaler -] 1 - 2 inh PO ASDIR PRN 05/12/14 RX: Insulin (Levemir) [Levemir Flexpen -] 14 units SQ BID 05/12/14 RX: Memantine HCl [Namenda Xr] 28 mg PO DAILY 05/12/14 RX: Montelukast Na [Singulair -] 10 mg PO HS 05/12/14 RX: Rivastigmine [Exelon Patch 4.6MG/24 Hours -] 1 each TD DAILY 05/12/14 RX: Simvastatin [Zocor -] 20 mg PO HS 05/12/14 Glipizide [Glipizide ER] 5 mg PO AC 09/23/14 Tiotropium [place] [Spiriva -] 1 inh PO DAILY 09/23/14 Cyanocobalamin [Vitamin B12 -] 1,000 mcg PO DAILY 03/06/17 Insulin (Novolog) [Novolog Flexpen] 0 units SQ ACHS 03/06/17 Problem List - Problems (1) Chest pain Code(s): R07.9 - CHEST PAIN, UNSPECIFIED (2) Dementia Code(s): F03.90 - UNSPECIFIED DEMENTIA WITHOUT BEHAVIORAL DISTURBANCE (3) Asthma Code(s): J45.909 - UNSPECIFIED ASTHMA, UNCOMPLICATED (4) Syncope Code(s): R55 - SYNCOPE AND COLLAPSE (5) IDDM (insulin dependent diabetes mellitus) Code(s): E11.9 - TYPE 2 DIABETES MELLITUS WITHOUT COMPLICATIONS 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
[2017-03-16 12:47] LABS: CPK 67 IU/L (26-192)
[2017-03-16 14:06] VITALS: BP 104/61; PULSE 89; TEMP 98.5
[2017-03-16 14:15] LABS: TROPONIN I (DFP) < 0.03 ng/ml (0.03-0.50)
--- NOTE | 2017-03-16 16:25 | EKG ---
Test Reason : Blood Pressure : / mmHG Vent. Rate : 070 BPM Atrial Rate : 070 BPM P-R Int : 128 ms QRS Dur : 088 ms QT Int : 376 ms P-R-T Axes : 067 024 051 degrees QTc Int : 406 ms NORMAL SINUS RHYTHM WITH SINUS ARRHYTHMIA NORMAL ECG WHEN COMPARED WITH ECG OF 06-MAR-2017 00:10, NO SIGNIFICANT CHANGE WAS FOUND Confirmed by BASILIO CARD MD ([id number]) on 03/16/2017 4:25:13 PM Referred By: DR HAN Confirmed By:BASILIO CARD MD
[2017-03-16] MEDS ORDERED: ATORVASTATIN CA 10 MG TABLET (FP) PO SCH (22:00)
[2017-03-16] MEDS ORDERED: MONTELUKAST NA 10 MG TABLET PO SCH (22:00)
== END 2017-03-16 19:13 | disposition home or self-care (01) ==
LOC: FER 22:42 → FM/S 03-16 00:30
PROVIDERS: ADMIT Internal Medicine; ATTEND Nurse Practitioner Family
PROC: 3E013VG Introduction of Insulin into Subcutaneous Tissue, Percutaneous Approach (ICD-10-PCS; principal; 2017-03-16)
PROC: 3E0F7GC Introduction of Other Therapeutic Substance into Respiratory Tract, Via Natural or Artificial Opening (ICD-10-PCS; 2017-03-16)
PROC: 3E0F7GC Introduction of Other Therapeutic Substance into Respiratory Tract, Via Natural or Artificial Opening (ICD-10-PCS; 2017-03-16)
DX: R07.9 Chest pain, unspecified (principal); F03.90 Unspecified dementia, unspecified severity, without behavioral disturbance, psychotic disturbance, mood disturbance, and anxiety; R06.02 Shortness of breath; R55 Syncope and collapse; J45.909 Unspecified asthma, uncomplicated; E11.9 Type 2 diabetes mellitus without complications; Z79.4 Long term (current) use of insulin; Z79.84 Long term (current) use of oral hypoglycemic drugs; E78.5 Hyperlipidemia, unspecified; I10 Essential (primary) hypertension; Z86.73 Personal history of transient ischemic attack (TIA), and cerebral infarction without residual deficits; Z91.041 Radiographic dye allergy status; K44.9 Diaphragmatic hernia without obstruction or gangrene; J44.9 Chronic obstructive pulmonary disease, unspecified
CPT/HCPCS: 36415; 71010-TC; 80048; 80053; 80061; 81003; 83036; 83690; 83735; 84100; 84484; 85025; 93005; 93306-TC; 93880-TC; 94640; 99284-25; G0378

== ENCOUNTER 2018-06-22 21:50 | Emergency (ER) | payer OTHER ==
--- NOTE | 2018-06-22 21:58 | PDOC ---
History of Present Illness - General Stated Complaint: LACERATION Time Seen by Provider: 06/22/18 21:57 - History of Present Illness Initial Comments: 06/22/18 21:59 Ms. Pemberton is a 77 yo female w/ pmh of DM, HTN, HLD, TIA, COPD, Dementia who presents for evaluation of head wound noted at care facility where patient is a resident ([facility]). Patient reportedly walked out from her room earlier this evening and staff noticed abbrasion to left forehead. Patient cannot describe injury and there was no sign of falling. Patient at baseline per and staff at facility. Denies any pain at this time. Past History - Past Medical History Allergies/Adverse Reactions: Allergies Allergy/AdvReac Type Severity Reaction Status Date / Time diatrizoate meglumine Allergy Severe Verified 06/22/18 22:07 [From MAYGastrosandra] diatrizoate sodium Allergy Severe Verified 06/22/18 22:07 [From Petros] ct scan dye Allergy Severe Difficulty Uncoded 06/22/18 22:07 Breathing Home Medications: Ambulatory Orders Albuterol 0.083% Nebulizer Suri [Ventolin 0.083% Nebulizer Soln -] 1 neb NEB ASDIR PRN 05/12/14 Albuterol Sulfate Inhaler - [Ventolin HFA Inhaler -] 1 - 2 inh PO ASDIR PRN Insulin (Levemir) [Levemir Flexpen -] 14 units SQ BID 05/12/14 Memantine HCl [Namenda Xr] 28 mg PO DAILY 05/12/14 Montelukast Na [Singulair -] 10 mg PO HS 05/12/14 Rivastigmine [Exelon Patch 4.6MG/24 Hours -] 1 each TD DAILY 05/12/14 Simvastatin [Zocor -] 20 mg PO HS 05/12/14 Glipizide [Glipizide ER] 5 mg PO AC 09/23/14 Tiotropium [place] [Spiriva] 1 inh PO DAILY 09/23/14 Cyanocobalamin [Vitamin B12 -] 1,000 mcg PO DAILY 03/06/17 Insulin (Novolog) [Novolog Flexpen -] 0 units SQ ACHS 03/06/17 Aspirin [ASA -] 81 mg PO DAILY #30 tab.chew 03/16/17 Insulin Sliding Scale [Novolog Vial Sliding Scale -] 1 vial SQ HS units Insulin Sliding Scale [Novolog Vial Sliding Scale -] 1 vial SQ TIDAC units Pantoprazole Sodium [Protonix] 40 mg PO DAILY #30 tablet. 03/16/17 Anemia: No Asthma: Yes Cancer: No Cardiac Disorders: Yes (SLIGHT RT SIDED CHEST PAIN 12/13/2011) CVA: Yes (TIA) COPD: Yes CHF: No Dementia: No Diabetes: Yes GI Disorders: Yes (HIATAL HERNIA) Disorders: No HTN: Yes Hypercholesterolemia: Yes Liver Disease: No Seizures: No Thyroid Disease: No - Surgical History Abdominal Surgery: No Appendectomy: Yes Cardiac Surgery: No Cholecystectomy: No Lung Surgery: No Neurologic Surgery: No Orthopedic Surgery: Yes (RT ROTATED CUFF SHOULDER SURGERY) - Immunization History Immunization Up to Date: Yes - Suicide/Smoking/Psychosocial Hx Smoking Status: No Smoking History: Never smoked Have you smoked in the past 12 months: No Number of Cigarettes Smoked Daily: 0 Hx Alcohol Use: No Drug/Substance Use Hx: No Substance Use Type: None Hx Substance Use Treatment: No Review of Systems - Review of Systems Comments:: 06/22/18 22:26 Unable to obtain further. *Physical Exam - Physical Exam Comments: 06/22/18 22:26 GENERAL: Awake, alert, and oriented to baseline HEAD: +Approximate nickel sized abbrasion noted to left forehead. EYES: PERRLA, EOMI, sclera anicteric, conjunctiva clear ENT: Auricles normal inspection, hearing grossly normal, nares patent, oropharynx clear without exudates. Moist mucosa NECK: Normal ROM, supple, no lymphadenopathy, JVD, or masses LUNGS: No distress, speaks full sentences, clear to auscultation bilaterally HEART: Regular rate and rhythm, normal S1 and S2, no murmurs, rubs or gallops, peripheral pulses normal and equal bilaterally. ABDOMEN: Soft, nontender, normoactive bowel sounds. No guarding, no rebound. No masses EXTREMITIES: Normal inspection, Normal range of motion, no edema. No clubbing or cyanosis. NEUROLOGICAL: +Unable to assess. SKIN: Warm, Dry, normal turgor, no rashes or lesions noted. Medical Decision Making - Medical Decision Making 06/22/18 22:35 Ms. Pemberton is a 77 yo female w/ pmh as described who presents for evaluation of abrasion w/out known cause. Patient oriented to baseline per family. Tetanus up to date. Will evaluate patient with CT head / C-spine. 06/23/18 00:29 Head / C-spine CT's negative for acute process. Wound cleaned with betadine and closed with steri-strips x2. No concern for other acute process at this time. Patient remains at baseline per family. Discharging to home. *DC/Admit/Observation/Transfer Diagnosis at time of Disposition: Abrasion of head Qualifiers: Encounter type: initial encounter Qualified Code(s): S00.91XA - Abrasion of unspecified part of head, initial encounter - Discharge Dispostion Disposition: HOME - Referrals Referrals: Kar Ventura MD [Primary Care Provider] - - Patient Instructions Printed Discharge Instructions: How to Prevent Falls, DI for Closed Head Injury Additional Instructions: Ms. Pemberton was evaluated today in the ER for her forehead abrasion. No concerning findings were found on Head or C-spine CT. We sterilized her wound and closed it using steri-strips. Follow-up with primary care provider in 1-2 days for further evaluation. Return to ER if any change in mental status or wakefulness, pain, or other concerning symptoms. - Post Discharge Activity
[2018-06-22 22:08] VITALS: TEMP 97.6; BMI 19.1
--- NOTE | 2018-06-22 22:38 | PDOC ---
Attending Attestation - HPI HPI: 06/22/18 22:44 Patient is a 77 year old female with hypertension, hyperlipidemia, COPD, TIA and dementia who presents to the ED from [facility] assisted living after nurse found her with a forehead laceration. Patient cannot provide any history and it is unsure of how she hit her head. Patients states she likes to [place] around [place] [facility]. Patient is UTD on her tetanus shot. Denies any complaints. - Physicial Exam PE: 06/22/18 22:44 GENERAL: Awake, demented. HEAD: small skin avulsion to left forehead NECK: Normal ROM, no spinal tenderness in CTL spine. No step off or deformity. LUNGS: Breath sounds equal, clear to auscultation bilaterally. HEART: Regular rate and rhythm ABDOMEN: Soft, nontender, EXTREMITIES: Normal range of motion, no edema. No clubbing or cyanosis. No cords, erythema, or tenderness NEUROLOGICAL: Cranial nerves II through XII grossly intact. Normal gait SKIN: Warm, Dry, normal turgor - Medical Decision Making 06/22/18 22:46 Documentation prepared by Bailey Pool, acting as medical equipment repairer for Gill Avendano DO. <Bailey Pool - Last Filed: 06/22/18 22:44> - Resident Resident Name: Ramiro Acosta - ED Attending Attestation I have performed the following: I have examined & evaluated the patient, The case was reviewed & discussed with the resident, I agree w/resident's findings & plan, Exceptions are as noted - Medical Decision Making 06/22/18 22:36 I, Dr. Gill Avendano DO, attest that this document has been prepared under my direction and personally reviewed by me in its entirety. I further attest, that it accurately reflects all work, treatment, procedures and medical decision -making performed by me. 06/22/18 22:36 a/p: 77yo pleasantly demented female with L forehead avulsion laceration -unsure if the patient fell -no anticoags per the nh -no c/t/l spine ttp -end stage dementia at baseline -will obtain head ct -family at the bedside states tetanus UTD -will need local wound care, if head ct negative [facility] 06/23/18 00:40 head and c spine ct negative resident cleaned and steristrip the avulsion stable for dc back to her NH <Gill Avendano - Last Filed: 06/23/18 00:40>
[2018-06-23 00:45] VITALS: BP 124/72; PULSE 86
== END 2018-06-23 01:41 | disposition home or self-care (01) ==
LOC: JER 21:50
DX: S00.81XA Abrasion of other part of head, initial encounter (principal); X58.XXXA Exposure to other specified factors, initial encounter; Y93.89 Activity, other specified; Y92.098 Other place in other non-institutional residence as the place of occurrence of the external cause; Y99.8 Other external cause status; I10 Essential (primary) hypertension; E78.5 Hyperlipidemia, unspecified; E11.9 Type 2 diabetes mellitus without complications; Z79.4 Long term (current) use of insulin; Z79.84 Long term (current) use of oral hypoglycemic drugs; J44.9 Chronic obstructive pulmonary disease, unspecified; F03.90 Unspecified dementia, unspecified severity, without behavioral disturbance, psychotic disturbance, mood disturbance, and anxiety; Z86.73 Personal history of transient ischemic attack (TIA), and cerebral infarction without residual deficits
CPT/HCPCS: 70450-TC; 72125-TC; 99283-25

== ENCOUNTER 2018-08-19 22:18 | Emergency (ER) | payer OTHER ==
--- NOTE | 2018-08-19 22:32 | PDOC ---
History of Present Illness - General Stated Complaint: FALL Time Seen by Provider: 08/19/18 22:32 Past History - Past Medical History Allergies/Adverse Reactions: Allergies Allergy/AdvReac Type Severity Reaction Status Date / Time diatrizoate meglumine Allergy Severe Verified 08/19/18 22:46 [From MAYGastrosandra] diatrizoate sodium Allergy Severe Verified 08/19/18 22:46 [From MAYGastrosandra] ct scan dye Allergy Severe Difficulty Uncoded 08/19/18 22:46 Breathing Home Medications: Ambulatory Orders Albuterol 0.083% Nebulizer Suri [Ventolin 0.083% Nebulizer Soln -] 1 neb NEB ASDIR PRN 05/12/14 Albuterol Sulfate Inhaler - [Ventolin HFA Inhaler -] 1 - 2 inh PO ASDIR PRN Insulin (Levemir) [Levemir Flexpen -] 14 units SQ BID 05/12/14 Memantine HCl [Namenda Xr] 28 mg PO DAILY 05/12/14 Montelukast Na [Singulair -] 10 mg PO HS 05/12/14 Rivastigmine [Exelon Patch 4.6MG/24 Hours -] 1 each TD DAILY 05/12/14 Simvastatin [Zocor -] 20 mg PO HS 05/12/14 Glipizide [Glipizide ER] 5 mg PO AC 09/23/14 Tiotropium [place] [Spiriva] 1 inh PO DAILY 09/23/14 Cyanocobalamin [Vitamin B12 -] 1,000 mcg PO DAILY 03/06/17 Insulin (Novolog) [Novolog Flexpen -] 0 units SQ ACHS 03/06/17 Aspirin [ASA -] 81 mg PO DAILY #30 tab.chew 03/16/17 Insulin Sliding Scale [Novolog Vial Sliding Scale -] 1 vial SQ HS units Insulin Sliding Scale [Novolog Vial Sliding Scale -] 1 vial SQ TIDAC units Pantoprazole Sodium [Protonix] 40 mg PO DAILY #30 tablet. 03/16/17 Anemia: No Asthma: Yes Cancer: No Cardiac Disorders: Yes (SLIGHT RT SIDED CHEST PAIN 12/13/2011) CVA: Yes (TIA) COPD: Yes CHF: No Dementia: No Diabetes: Yes GI Disorders: Yes (HIATAL HERNIA) Disorders: No HTN: Yes Hypercholesterolemia: Yes Liver Disease: No Seizures: No Thyroid Disease: No - Surgical History Abdominal Surgery: No Appendectomy: Yes Cardiac Surgery: No Cholecystectomy: No Lung Surgery: No Neurologic Surgery: No Orthopedic Surgery: Yes (RT ROTATED CUFF SHOULDER SURGERY) - Immunization History Immunization Up to Date: Yes - Suicide/Smoking/Psychosocial Hx Smoking Status: No Smoking History: Never smoked Have you smoked in the past 12 months: No Number of Cigarettes Smoked Daily: 0 Hx Alcohol Use: No Drug/Substance Use Hx: No Substance Use Type: None Hx Substance Use Treatment: No *DC/Admit/Observation/Transfer Diagnosis at time of Disposition: Nasal septum fracture Qualifiers: Encounter type: initial encounter Fracture type: closed Qualified Code(s): S02.2XXA - Fracture of nasal bones, initial encounter for closed fracture - Discharge Dispostion Disposition: NURSING HOME FACILITY Condition at time of disposition: Stable - Referrals Referrals: Kar Ventura MD [Primary Care Provider] - - Patient Instructions Printed Discharge Instructions: How to Prevent Falls, DI for Closed Head Injury Additional Instructions: You have a fracture of your nose but it does not require any immediate surgical repair. Please walk only with assistance or someone watching you. Please follow our fall precautions. Please return to our ED if you have any new or worsening symptoms. - Post Discharge Activity
--- NOTE | 2018-08-19 22:33 | PDOC ---
Attending Attestation - HPI HPI: 08/19/18 23:39 The patient is a 77 year old female with a significant past medical history of hypertension, hyperlipidemia, COPD, TIA and dementia who presents to the emergency department from [address] [place] [address] via [facility] for a possible fall earlier today. As per the alf, the patient was noted to be seen coming out of her room with a bloody nose. The alf sent the patient to the ED for further evaluation for a possible fall that the patient might have had. Documentation prepared by Radha Hughes, acting as nuclear medicine medical director for Carin Barrett DO, MD. <Radha Hughes - Last Filed: 08/19/18 23:39> - Resident Resident Name: Charline Justice - ED Attending Attestation I have performed the following: I have examined & evaluated the patient, The case was reviewed & discussed with the resident, I agree w/resident's findings & plan - Physicial Exam PE: 08/20/18 02:06 GENERAL: Awake, in no acute distress HEAD: EYES: ENT: Ecchymosis with localized edema over the nasal bridge NECK: Normal ROM, LUNGS:. Normal work of breathing. HEART: Regular rate and rhythm, ABDOMEN: Soft, nondistended CHEST WALL: BACK: No midline tenderness. EXTREMITIES:. No erythema, or tenderness NEUROLOGICAL: Alert, SKIN: Warm, Dry - Medical Decision Making 08/20/18 02:12 77-year-old female status post likely fall with evidence of facial trauma CT scans were obtained of the head and facial bones and cervical spine which showed possible nasal bone fracture without additional injuries noted though the facial images were suboptimal due to patient movement EKG was obtained prior to Haldol administration which was used to facilitate imaging There is low suspicion of additional injury based on patient's exam Plan is for discharge back to patient's long-term care facility with fall precautions and instructions 08/20/18 02:21 Impression nasal bone fracture Facial contusion <Carin Barrett - Last Filed: 08/20/18 02:22>
[2018-08-19 22:51] VITALS: BP 149/82; PULSE 105; TEMP 98.3; BMI 21.2
[2018-08-19] MEDS ORDERED: HALOPERIDOL LACTATE 5 MG/ML IM ONE (23:42)
[2018-08-20] MEDS ORDERED: HALOPERIDOL LACTATE 5 MG/ML ONE ×2 (00:02→01:03)
[2018-08-20] MEDS ORDERED: HALOPERIDOL LACTATE 5 MG/ML IM ONE (01:04)
--- NOTE | 2018-08-20 16:34 | EKG ---
Test Reason : Blood Pressure : / mmHG Vent. Rate : 092 BPM Atrial Rate : 092 BPM P-R Int : 134 ms QRS Dur : 066 ms QT Int : 348 ms P-R-T Axes : 077 050 060 degrees QTc Int : 430 ms NORMAL SINUS RHYTHM LEFT ATRIAL ENLARGEMENT BORDERLINE ECG Confirmed by MD MAGALY, ANGELI ([id number]) on 08/20/2018 4:33:34 PM Referred By: Confirmed By:ANGELI MCKENZIE MD
== END 2018-08-20 03:59 ==
LOC: JER 22:18
PROC: 3E033GC Introduction of Other Therapeutic Substance into Peripheral Vein, Percutaneous Approach (ICD-10-PCS; principal; 2018-08-19)
DX: S02.2XXA Fracture of nasal bones, initial encounter for closed fracture (principal); W18.39XA Other fall on same level, initial encounter; Y93.89 Activity, other specified; Y92.092 Bedroom in other non-institutional residence as the place of occurrence of the external cause; Y99.8 Other external cause status; I10 Essential (primary) hypertension; E78.00 Pure hypercholesterolemia, unspecified; E11.9 Type 2 diabetes mellitus without complications; Z79.84 Long term (current) use of oral hypoglycemic drugs; J45.909 Unspecified asthma, uncomplicated; J44.9 Chronic obstructive pulmonary disease, unspecified; Z87.19 Personal history of other diseases of the digestive system; Z86.73 Personal history of transient ischemic attack (TIA), and cerebral infarction without residual deficits
CPT/HCPCS: 70450-TC; 70486-TC; 71046-TC-FY; 72125-TC; 72170-TC-FY; 93005; 93010; 96374; 96376; 99282-25

== ENCOUNTER 2019-01-11 05:52 | Inpatient (IN) | payer OTHER ==
[2019-01-11] MEDS ORDERED: SODIUM CHLORIDE 1,361 ML IV ONE (06:28)
--- NOTE | 2019-01-11 07:06 | PDOC ---
History of Present Illness - General Chief Complaint: Injury Stated Complaint: FELL Time Seen by Provider: 01/11/19 07:05 - History of Present Illness Initial Comments: 01/11/19 07:06 77 year old female resident of [facility] with PMH of dementia, TIA, COPD, HLD, and IDDM, RA, asthma, psychosis sent [place] after unwitnessed fall and bleed from the left side of her head. Vitals at [place]: 129/76, 88, 210, 97.2. Allergy: contrast dye. PCP: Lorenzo Past History - Past Medical History Allergies/Adverse Reactions: Allergies Allergy/AdvReac Type Severity Reaction Status Date / Time diatrizoate meglumine Allergy Severe Verified 01/11/19 06:12 [From Petros] diatrizoate sodium Allergy Severe Verified 01/11/19 06:12 [From Petros] ct scan dye Allergy Severe Difficulty Uncoded 01/11/19 06:12 Breathing Home Medications: Ambulatory Orders Montelukast Na [Singulair -] 10 mg PO HS 05/12/14 Simvastatin [Zocor -] 40 mg PO HS 05/12/14 Cyanocobalamin [Vitamin B12 -] 1,000 mcg PO DAILY 03/06/17 Aspirin [ASA -] 81 mg PO DAILY #30 tab.chew 03/16/17 Cariprazine HCl [Vraylar] 4.5 mg PO DAILY 01/11/19 Insulin Detemir [Levemir Flextouch] 5 unit SQ HS 01/11/19 Insulin Detemir [Levemir Flextouch] 30 unit SQ AM 01/11/19 Ranitidine [Zantac -] 150 mg PO BID 01/11/19 traZODone HCL [Trazodone HCl] 50 mg PO AM 01/11/19 traZODone HCL [Trazodone HCl] 100 mg PO HS 01/11/19 Anemia: No Asthma: Yes Cancer: No Cardiac Disorders: Yes (SLIGHT RT SIDED CHEST PAIN 12/13/2011) CVA: Yes (TIA) COPD: Yes CHF: No Dementia: No Diabetes: Yes GI Disorders: Yes (HIATAL HERNIA) Disorders: No HTN: Yes Hypercholesterolemia: Yes Liver Disease: No Seizures: No Thyroid Disease: No - Surgical History Abdominal Surgery: No Appendectomy: Yes Cardiac Surgery: No Cholecystectomy: No Lung Surgery: No Neurologic Surgery: No Orthopedic Surgery: Yes (RT ROTATED CUFF SHOULDER SURGERY) - Immunization History Immunization Up to Date: Yes - Suicide/Smoking/Psychosocial Hx Smoking Status: No Smoking History: Never smoked Have you smoked in the past 12 months: No Number of Cigarettes Smoked Daily: 0 Information on smoking cessation initiated: No Hx Alcohol Use: No Drug/Substance Use Hx: No Substance Use Type: None Hx Substance Use Treatment: No Review of Systems - Review of Systems Able to Perform ROS?: No (Exquisitely demented) *Physical Exam - Vital Signs Last Vital Signs Temp Pulse Resp BP Pulse Ox 97.6 F 126 H 18 171/101 H 95 01/11/19 06:13 01/11/19 06:13 01/11/19 06:13 01/11/19 06:13 01/11/19 06:13 - Physical Exam General Appearance: Yes: Thin HEENT: positive: EOMI, Other (Laceration, non-bleeding, to the left parietal scalp with dried blood. ) Respiratory/Chest: positive: Lungs Clear, Normal Breath Sounds. negative: Chest Tender, Respiratory Distress Cardiovascular: positive: Regular Rhythm, S1, S2, Tachycardia Gastrointestinal/Abdominal: positive: Normal Bowel Sounds, Flat, Soft. negative : Tender Musculoskeletal: positive: Normal Inspection Extremity: positive: Normal Capillary Refill, Normal Inspection Integumentary: positive: Normal Color, Dry, Warm Neurologic: positive: Other (Patient demented, unknown how close to baseline. ) . negative: Fully Oriented, Alert, Normal Mood/Affect Procedures - Laceration/Wound Repair Occipital Wound Length: 2.6 to 5.0 cm Wound's Depth, Shape: linear Irrigated w/ Saline: Yes Anesthesia: 2% Lidocaine Wound Repaired With: [place] Number of Sutures: 6 (morgan) ED Treatment Course - LABORATORY CBC & Chemistry Diagram: 01/11/19 06:50 01/11/19 06:50 Medical Decision Making - Medical Decision Making 01/11/19 07:38 78f with pmh of dementia [facility]ed [facility] presenting with left scalp laceration. Will obtain ct head and c-spine to evaluate from fracture and intracranial bleeding. The patient is tachycardic with a rectal temp of 99 , septic workup was ordered as possible cause of fall. Mental status impossible to determine from baseline. Will look for signs of UTi and pneumonia aith UA/UC and cxr. EKG pending as well. 01/11/19 08:16 2.7 lactate Will start covering the patient with Abx Vanc-zosyn 01/11/19 09:13 4cm laceration to the back of the scalp repaired with 6 morgan. 01/11/19 11:11 Meets sepsis criteria: tachycardic, tachypneic, lungs as source of infection on cat scan and lactic acidosis 01/11/19 11:40 Admitted to Hospitalist for sepsis pneumonia *DC/Admit/Observation/Transfer Diagnosis at time of Disposition: Pneumonia, Sepsis - Discharge Dispostion Decision to Admit order: Yes - Referrals Referrals: Kar Ventura MD [Primary Care Provider] - - Patient Instructions - Post Discharge Activity
[2019-01-11 07:24] LABS: VENOUS PC02 51.3 mmHg (41-51); VENOUS PH 7.3 (7.31-7.41)
[2019-01-11 07:25] LABS: VENOUS PO2 23.8 mmHg (30-40)
[2019-01-11 07:31] LABS: INR 1.11 (0.83-1.09); PROTHROMBIN TIME (PATIENT) 13.1 SEC (9.7-13.0)
[2019-01-11 07:34] LABS: ACTIVATED PTT 33.5 SECONDS (25.2-36.5)
[2019-01-11 07:45] LABS: BASO % 0.6 % (0-2.0); EOS % 0.2 % (0-4.5); HEMATOCRIT 36.9 % (32.4-45.2); HEMOGLOBIN 12.3 GM/dL (10.7-15.3); LYMPH % 13.1 % (8-40); MCH 32.6 pg (25.7-33.7); MCHC 33.5 g/dl (32.0-36.0); MEAN CELL VOLUME 97.3 fl (80-96); MEAN PLT VOLUME 7.9 fl (7.5-11.1); MONO % 7.1 % (3.8-10.2); PLATELET COUNT 552 K/MM3 (134-434); RBC 3.79 M/mm3 (3.60-5.2); RDW 14.1 % (11.6-15.6); WHITE BLOOD COUNT 6.7 K/mm3 (4.0-10.0)
[2019-01-11] MEDS ORDERED: ACETAMINOPHEN 1000 MG/100 ML VIAL (NON FORMULARY) IVPB ONE (07:55)
[2019-01-11 08:02] LABS: ALBUMIN 3.1 g/dl (3.4-5.0); BILIRUBIN,TOTAL 0.6 mg/dL (0.2-1); BLOOD UREA NITROGEN 11.6 mg/dL (7-18); CALCIUM 9.5 mg/dL (8.5-10.1); CREATININE 0.7 mg/dL (0.55-1.3); POTASSIUM 4.7 mmol/L (3.5-5.1); TOT PROT 7.8 g/dl (6.4-8.2)
[2019-01-11] MEDS ORDERED: HALOPERIDOL LACTATE 5 MG/ML IM ONE ×2 (08:04→08:06)
[2019-01-11] MEDS ORDERED: PIPERACILLIN/TAZOB 3.375 GM 3.375 GM in DEXTROSE 5%-WATER - 50 ML IVPB ONE (08:24)
[2019-01-11] MEDS ORDERED: VANCOMYCIN 1 GM in D5W (PRE-DOCKED) 1,000 MG/250 ML IVPB ONE (08:25)
--- NOTE | 2019-01-11 08:34 | PDOC ---
Attending Attestation - Resident Resident Name: Mike Dumont - ED Attending Attestation I have performed the following: I have examined & evaluated the patient, The case was reviewed & discussed with the resident, I agree w/resident's findings & plan, Exceptions are as noted - HPI HPI: 01/11/19 08:34 78 F with h/o dementia, TIA, COPD, HLD, and IDDM, presenting to ED with fall. Pt was reportedly found on ground in her room at [facility]. Pt is unable to contribute any history herself. - Physicial Exam PE: 01/11/19 08:35 "GENERAL: Awake, alert, confused, in no acute distress. HEAD: + lac to L scalp EYES: PERRLA, EOMI, sclera anicteric, conjunctiva clear ENT: Auricles normal inspection, hearing grossly normal, nares patent, oropharynx clear without exudates. Moist mucosa NECK: Nontender, no stepoffs, Normal ROM, supple, no lymphadenopathy, JVD, or masses LUNGS: Breath sounds equal, clear to auscultation bilaterally. No wheezes, and no crackles HEART: Regular rate and rhythm, normal S1 and S2, no murmurs, rubs or gallops ABDOMEN: Soft, nontender, normoactive bowel sounds. No guarding, no rebound. No masses EXTREMITIES: Normal range of motion, no edema. No clubbing or cyanosis. No cords, erythema, or tenderness NEUROLOGICAL: Cranial nerves II through XII intact. 5/5 strength and sensation in all extremities SKIN: Warm, Dry, normal turgor, no rashes or lesions noted." - Medical Decision Making 01/11/19 08:45 78 F BIBA for unwitnessed fall. Pt confused but likely at baseline. Will r/o bleed with CT head. Pt also noted to be tachycardic in ED. Will r/o sepsis. - labs - CT head/c-spine - CXR, pelvis XR
[2019-01-11] MEDS ORDERED: VANCOMYCIN 1 GRAM (PRE-DOCKED) 1,000 MG/250 ML BAG IVPB ONE (08:44)
[2019-01-11] MEDS ORDERED: PIPERACILLIN/TAZOB 3.375 GM 3.375 GM/50 ML BAG IVPB ONE (08:44)
[2019-01-11 08:51] LABS: URINE APPEARANCE CLEAR; URINE BILIRUBIN NEGATIVE (NEGATIVE); URINE COLOR YELLOW; URINE GLUCOSE (UA) 2+ (NEGATIVE); URINE KETONE 3+ (NEGATIVE); URINE LEUK ESTERASE NEGATIVE (NEGATIVE); URINE NITRITE NEGATIVE (NEGATIVE); URINE PROTEIN NEGATIVE (NEGATIVE); URINE UROBILINOGEN 0.2 mg/dL (0.2-1.0)
[2019-01-11] MEDS ORDERED: LIDOCAINE HCL 2% (50ML VIAL) SQ ONE (09:02)
[2019-01-11] MEDS ORDERED: LIDOCAINE HCL 2% (20ML MULTI-DOSE VIAL) NR ONE (09:03)
--- NOTE | 2019-01-11 13:43 | HP ---
CHIEF COMPLAINT: s/p fall PCP: Dr. Hernández [phone] HISTORY OF PRESENT ILLNESS: The patient is a 78 yo f w/ PMH Dementia, TIA, COPD, DM, HLD who was BIBA from [facility] assisted living after she was found to have fallen and sustained a laceration to the back of her head. No additional history is available from the [place] records. Patient is minimally verbal at baseline and is unable to provide a history. Per patient's , at bedside, Patient has MOLST from [place] showing DNR/DNI and comfort measures only. This status was confirmed with her and HCP at bedside. HCP and signed living will documents are included with patient's NH papers. ER course was notable for: (1) CT head without acute bleed or change, CT c spine without fracture (2) CXR with possible consolidation/shadowing at the left base (3) CTAP showing bibasilar consolidation/atalectasis (4) HR 120, RR 23, rectal temp 99.1 Recent Travel: none PAST MEDICAL HISTORY: see HPI PAST SURGICAL HISTORY: Appendectomy Orthopedic shoulder sx Social History: Smoking: denies Alcohol: denies Drugs: denies Family History: Allergies diatrizoate meglumine [From MAYGastrosandra] Allergy (Severe, Verified 01/11/19 06 :12) Difficulty Breathing diatrizoate sodium [From MAYGastrosandra] Allergy (Severe, Verified 01/11/19 06:12 ) Difficulty Breathing ct scan dye Allergy (Severe, Uncoded 01/11/19 06:12) Difficulty Breathing HOME MEDICATIONS: Home Medications Medication Instructions Recorded Montelukast Na [Singulair -] 10 mg PO HS 05/12/14 Simvastatin [Zocor -] 40 mg PO HS 05/12/14 Cyanocobalamin [Vitamin B12 -] 1,000 mcg PO DAILY 03/06/17 Aspirin [ASA -] 81 mg PO DAILY #30 tab.chew 03/16/17 Cariprazine HCl [Vraylar] 4.5 mg PO DAILY 01/11/19 Insulin Detemir [Levemir Flextouch] 5 unit SQ HS 01/11/19 Insulin Detemir [Levemir Flextouch] 30 unit SQ AM 01/11/19 Ranitidine [Zantac -] 150 mg PO BID 01/11/19 traZODone HCL [Trazodone HCl] 50 mg PO AM 01/11/19 traZODone HCL [Trazodone HCl] 100 mg PO HS 01/11/19 REVIEW OF SYSTEMS unable to obtain PHYSICAL EXAMINATION Vital Signs - 24 hr 01/11/19 01/11/19 01/11/19 06:13 07:11 08:53 Temperature 97.6 F 99.1 F Pulse Rate 126 H Pulse Rate [ 120 H Left Radial] Respiratory 18 Rate Blood Pressure 171/101 H Blood Pressure [Right Arm] O2 Sat by Pulse 95 Oximetry (%) 01/11/19 01/11/19 01/11/19 09:36 10:23 11:56 Temperature 99.6 F Pulse Rate Pulse Rate [ 120 H 122 H Left Radial] Respiratory 23 H 20 Rate Blood Pressure Blood Pressure 136/77 131/77 [Right Arm] O2 Sat by Pulse 96 96 95 Oximetry (%) 01/11/19 13:17 Temperature 99.8 F H Pulse Rate 120 H Pulse Rate [ Left Radial] Respiratory 18 Rate Blood Pressure 134/71 Blood Pressure [Right Arm] O2 Sat by Pulse Oximetry (%) GENERAL: Easily rousable to voice, not responsive to commands or questions. Mumbles to self. Patient at baseline mental status per . HEAD: Hair is matted with dried blood. There is a laceration measuring appox. 10cm on the back of the patient's scalp which has been closed with morgan. Laceration edges well approximated. NECK: Normal range of motion, supple without lymphadenopathy, JVD, or masses. LUNGS: Breath sounds equal, cracles heard at the left base HEART: Regular rate and rhythm, normal S1 and S2 without murmur, rub or gallop. ABDOMEN: Soft, nontender, not distended, normoactive bowel sounds, no guarding, no rebound, no masses. No hepatomegaly or splenomegaly. LOWER EXTREMITIES: 2+ pulses, warm, well-perfused. No calf tenderness. No peripheral edema. NEUROLOGICAL: unable to obtain SKIN: Warm, dry, normal turgor, no rashes or lesions noted, normal capillary refill. No decubiti Laboratory Results - last 24 hr 01/11/19 01/11/19 01/11/19 06:50 06:50 06:50 WBC 6.7 RBC 3.79 Hgb 12.3 Hct 36.9 MCV 97.3 H MCH 32.6 MCHC 33.5 RDW 14.1 Plt Count 552 H D MPV 7.9 Absolute Neuts (auto) 5.3 Neutrophils % 79.0 Lymphocytes % 13.1 D Monocytes % 7.1 Eosinophils % 0.2 Basophils % 0.6 Nucleated RBC % 0 PT with INR 13.10 H INR 1.11 H PTT (Actin FS) 33.5 VBG pH POC VBG pCO2 POC VBG pO2 VBG HCO3 VBG O2 Sat (Mary) VBG Base Excess Sodium Potassium Chloride Carbon Dioxide Anion Gap BUN Creatinine Est GFR (CKD-EPI)AfAm Est GFR (CKD-EPI)NonAf POC Glucometer Random Glucose Lactic Acid Calcium Total Bilirubin AST ALT Alkaline Phosphatase Creatine Kinase 59 CK-MB (CK-2) < 1.0 Troponin I < 0.02 Total Protein Albumin Urine Color Urine Appearance Urine pH Ur Specific [place] Urine Protein Urine Glucose (UA) Urine Ketones Urine Blood Urine Nitrite Urine Bilirubin Urine Urobilinogen Ur Leukocyte Esterase Blood Type Antibody Screen 01/11/19 01/11/19 01/11/19 06:50 06:50 06:50 WBC RBC Hgb Hct MCV MCH MCHC RDW Plt Count MPV Absolute Neuts (auto) Neutrophils % Lymphocytes % Monocytes % Eosinophils % Basophils % Nucleated RBC % PT with INR INR PTT (Actin FS) VBG pH POC VBG pCO2 POC VBG pO2 VBG HCO3 VBG O2 Sat (Mary) VBG Base Excess Sodium 135 L Potassium 4.7 Chloride 97 L Carbon Dioxide 27 Anion Gap 12 BUN 11.6 Creatinine 0.7 Est GFR (CKD-EPI)AfAm 97.54 Est GFR (CKD-EPI)NonAf 84.16 POC Glucometer Random Glucose 325 H* Lactic Acid 2.7 H* Calcium 9.5 Total Bilirubin 0.6 AST 12 L ALT 18 Alkaline Phosphatase 169 H Creatine Kinase CK-MB (CK-2) Troponin I Total Protein 7.8 Albumin 3.1 L Urine Color Urine Appearance Urine pH Ur Specific [place] Urine Protein Urine Glucose (UA) Urine Ketones Urine Blood Urine Nitrite Urine Bilirubin Urine Urobilinogen Ur Leukocyte Esterase Blood Type O POSITIVE Antibody Screen Negative 01/11/19 01/11/19 01/11/19 07:05 07:20 10:30 WBC RBC Hgb Hct MCV MCH MCHC RDW Plt Count MPV Absolute Neuts (auto) Neutrophils % Lymphocytes % Monocytes % Eosinophils % Basophils % Nucleated RBC % PT with INR INR PTT (Actin FS) VBG pH 7.30 L POC VBG pCO2 51.3 H POC VBG pO2 23.8 L VBG HCO3 27.0 VBG O2 Sat (Mary) 31.4 L VBG Base Excess 0.7 Sodium Potassium Chloride Carbon Dioxide Anion Gap BUN Creatinine Est GFR (CKD-EPI)AfAm Est GFR (CKD-EPI)NonAf POC Glucometer Random Glucose Lactic Acid 1.3 Calcium Total Bilirubin AST ALT Alkaline Phosphatase Creatine Kinase CK-MB (CK-2) Troponin I Total Protein Albumin Urine Color Yellow Urine Appearance Clear Urine pH 7.0 Ur Specific [place] 1.037 H Urine Protein Negative Urine Glucose (UA) 2+ H Urine Ketones 3+ H Urine Blood Negative Urine Nitrite Negative Urine Bilirubin Negative Urine Urobilinogen 0.2 Ur Leukocyte Esterase Negative Blood Type Antibody Screen 01/11/19 12:48 WBC RBC Hgb Hct MCV MCH MCHC RDW Plt Count MPV Absolute Neuts (auto) Neutrophils % Lymphocytes % Monocytes % Eosinophils % Basophils % Nucleated RBC % PT with INR INR PTT (Actin FS) VBG pH POC VBG pCO2 POC VBG pO2 VBG HCO3 VBG O2 Sat (Mary) VBG Base Excess Sodium Potassium Chloride Carbon Dioxide Anion Gap BUN Creatinine Est GFR (CKD-EPI)AfAm Est GFR (CKD-EPI)NonAf POC Glucometer 334 Random Glucose Lactic Acid Calcium Total Bilirubin AST ALT Alkaline Phosphatase Creatine Kinase CK-MB (CK-2) Troponin I Total Protein Albumin Urine Color Urine Appearance Urine pH Ur Specific [place] Urine Protein Urine Glucose (UA) Urine Ketones Urine Blood Urine Nitrite Urine Bilirubin Urine Urobilinogen Ur Leukocyte Esterase Blood Type Antibody Screen ASSESSMENT/PLAN: The patient is a 78 yo f w/ PMH Dementia, TIA, COPD, DM, RA who comes was BIBA after falling and sustaining a laceration to the back of the neck. Patient was incidentally found to have a possible PNA. #Code Status -patient's and HCP (documents in chart) is in possession of an unsigned MOLST form detailing DNR/DNI and comfort measures only including no ABX , no IVF. -Signed living will in [place] papers details the same. -This code status confirmed this admission with . -Until signed MOLST obtained, has signed a DNR/DNI/comfort care paper today (in chart) -Will reach out to PCP on Sunday (Dr. Ventura [phone]) to obtain signed MOLST - declining IVF, ABX, blood draws, additional diagnostic studies #s/p fall possibly 2/2 PNA vs orthostatic hypotension -patient not on blood thinners -initial CT head and c-spine negative for acute pathology. -laceration closed in ED -neuro checks #sepsis 2/2 possible PNA -tachycardic and tachypnic -possible PNA seen on CTAP -Tylenol PRN pain/fever -morphine po 2mg q4h PRN pain #DM -will continue FS and ISS #FEN -nop fluids -no blood draws, no lyte repletion -on dysphagia puree w/ nectar thick liquids. #Dispo -admit med surg -comfort care -will pursue hospice evaluation on Sunday. Visit type - Emergency Visit Emergency Visit: Yes ED Registration Date: 01/11/19 Care time: The patient presented to the Emergency Department on the above date and was hospitalized for further evaluation of their emergent condition. - New Patient This patient is new to me today: Yes Date on this admission: 01/11/19 - Critical Care Critical Care patient: No
[2019-01-11] MEDS ORDERED: INSULIN (LEVEMIR) 100 UNITS/ML UNITS SQ ONE (13:55)
--- NOTE | 2019-01-11 15:21 | PN ---
Teaching Attending Note Name of Resident: Dane Jessica ATTENDING PHYSICIAN STATEMENT I saw and evaluated the patient. I reviewed the resident's note and discussed the case with the resident. I agree with the resident's findings and plan as documented. SUBJECTIVE: CC: Unwitnessed fall HPI: 78 y/o lady with h/o dementia, TIA, COPD, HLP, Dm and other medical problems who [facility] with an unwitnessed fall. history is obtained form who is at bedside. the patient suffers form dementia, has frequent falls, her wishes as per a MOLST form are to withold life prolonging agents, no ABx, and no IVF , no TF. she has been deteriorating, with weight loss, worsening DM, poor po intake, and frequent falls. fever in past few weeks. in ER she was given Abx for possible PNA. A scalp laceration was stapled OBJECTIVE: NAD, moaning, contracted upper extremities. resists eye opening. occipito- parietal laceration with morgan MMM, no facial droop. CV: RRR, no MRG lungs: CTAB anteriorly and on sides skin , no decub ulcers ext: 1+ pitting edema on legs, laceration on R third toe . ASSESSMENT AND PLAN: 78 y/o lady with h/o dementia, TIA, COPD, HLP, Dm and other medical problems who [facility] with an unwitnessed fall. 1- Unwitnessed fall 2- Scalp laceration s/p morgan. 3- Possible PNA ( infiltrates on CT, axillary temp 99.8) 4- severe dementia 5- DM Plan : - goals of care were d/w . He ( honoring her wishes), does not want to prolong her suffering. He does not want Neha to get Abx for possible PNA, fluid for volume depletion, or blood work. he wants nature to take its course. - will dc IV - will request MOLST form form PCP or facility, but in mean time , signed A DNR/DNI form - will not repeat Blood work. - will give SSI and levemir for DM with finger stick. no Blood work even for severe hyperglycemia with possible DKA. - concentrated morphine drops for pain, if any - will have hospice eval on Sunday - 1:1 as patient is at great risk of getting up and falling - placement on Sunday dispo ; HLOC
[2019-01-11] MEDS: morphine SULFATE 10 MG/5 ML UNIT-DOSE CUP PO PRN (16:34)
[2019-01-11] MEDS: INSULIN SLIDING SCALE (NOVOLOG) 1 VIAL SQ SCH (16:40)
[2019-01-11] MEDS: traZODone HCL 50 MG TABLET (FP) PO SCH (21:35)
[2019-01-11] MEDS: ACETAMINOPHEN 325 MG TABLET (FP) PO PRN (21:36)
[2019-01-12] MEDS: INSULIN SLIDING SCALE (NOVOLOG) 1 VIAL SQ SCH ×3 (06:37→16:59)
[2019-01-12] MEDS: INSULIN (LEVEMIR) 100 UNITS/ML UNITS SQ SCH (06:37)
[2019-01-12] MEDS: traZODone HCL 50 MG TABLET (FP) PO SCH ×2 (06:38→21:36)
[2019-01-12] MEDS ORDERED: PATIENT'S OWN MEDICATION (NON-FORMULARY) (Insulin Detemir [Levemir Flextouch] 30 UNIT) SQ SCH (07:00)
[2019-01-12] MEDS: morphine SULFATE 10 MG/5 ML UNIT-DOSE CUP PO PRN ×2 (11:57→16:43)
--- NOTE | 2019-01-12 12:51 | PN ---
Progress Note (short form) - Note Progress Note: Subjective: no events over night. she denies pain or SOB Objective: Vital Signs: Last Vital Signs Temp Pulse Resp BP Pulse Ox 97.9 F 125 H 18 132/63 96 01/12/19 06:00 01/12/19 06:00 01/12/19 06:00 01/12/19 06:00 01/11/19 21:00 Laboratory Results - last 24 hr 01/11/19 01/11/19 01/12/19 12:48 16:38 06:30 POC Glucometer 334 288 287 01/12/19 11:22 POC Glucometer 210 Physical Exam: NAD,opens eyes, says few words MMM, no facial droop. CV: RRR, no MRG lungs: CTAB anteriorly and on sides skin , no decub ulcers ext: 1+ pitting edema on legs, laceration on R third toe . ASSESSMENT AND PLAN: 78 y/o lady with h/o dementia, TIA, COPD, HLP, Dm and other medical problems who [facility] with an unwitnessed fall. 1- Unwitnessed fall 2- Scalp laceration s/p morgan. 3- Possible PNA 4- severe dementia 5- DM Plan : -Hospice/comfort care - insulin treatment levemir and SSI - 1:1 as patient is at great risk of getting up and falling - No blood work , IV line, or ABx/IVF - hospice eval onSunday - placement on Sunday Visit type - Emergency Visit Emergency Visit: Yes ED Registration Date: 01/11/19 Care time: The patient presented to the Emergency Department on the above date and was hospitalized for further evaluation of their emergent condition. - New Patient This patient is new to me today: No - Critical Care Critical Care patient: No
--- NOTE | 2019-01-12 17:04 | EKG ---
Test Reason : Blood Pressure : / mmHG Vent. Rate : 122 BPM Atrial Rate : 122 BPM P-R Int : 122 ms QRS Dur : 060 ms QT Int : 322 ms P-R-T Axes : 084 044 059 degrees QTc Int : 458 ms POOR DATA QUALITY, INTERPRETATION MAY BE ADVERSELY AFFECTED SINUS TACHYCARDIA OTHERWISE NORMAL ECG WHEN COMPARED WITH ECG OF 19-AUG-2018 23:55, ST NOW DEPRESSED IN INFERIOR LEADS Confirmed by MD OZIEL, JESSICA ([id number]) on 01/12/2019 5:04:28 PM Referred By: Confirmed By:JESSICA LUDWIG MD
[2019-01-13] MEDS: INSULIN (LEVEMIR) 100 UNITS/ML UNITS SQ SCH (06:12)
[2019-01-13] MEDS: traZODone HCL 50 MG TABLET (FP) PO SCH ×2 (06:13→21:11)
[2019-01-13] MEDS: INSULIN SLIDING SCALE (NOVOLOG) 1 VIAL SQ SCH ×3 (06:13→16:41)
[2019-01-13] MEDS: morphine SULFATE 10 MG/5 ML UNIT-DOSE CUP PO PRN ×3 (06:51→15:00)
[2019-01-13] MEDS: ACETAMINOPHEN 325 MG TABLET (FP) PO PRN ×2 (07:29→16:06)
--- NOTE | 2019-01-13 11:29 | PN ---
Teaching Attending Note Name of Resident: Marcellus Krause ATTENDING PHYSICIAN STATEMENT I saw and evaluated the patient. I reviewed the resident's note and discussed the case with the resident. I agree with the resident's findings and plan as documented. SUBJECTIVE: Unable to obtain hx OBJECTIVE: NAD,moaning , resists part of exam CV: RRR, no MRG lungs: CTAB anteriorly Ext: No edema, laceration on R third toe . resists abd exam ASSESSMENT AND PLAN: 78 y/o lady with h/o dementia, TIA, COPD, HLP, Dm and other medical problems who [facility] with an unwitnessed fall. 1- Unwitnessed fall 2- Scalp laceration s/p morgan. 3- Possible PNA 4- severe dementia 5- DM Plan : - Hospice/comfort care - insulin treatment levemir and SSI - No blood work, IV line, or ABx/IVF - hospice eval - placement when bed available
--- NOTE | 2019-01-13 14:58 | PN ---
Physical Exam: SUBJECTIVE: Patient seen and examined at bedside. No acute events overnight. OBJECTIVE: Vital Signs Period Temp Pulse Resp BP Sys/Howell Pulse Ox Last 24 Hr 97.6 F-99.3 F 103-128 16-18 92-131/48-71 93-99 GEN: NAD, Moans when asked questions CV: RRR, S1S2 RESP: CTAB anteriorly Ext: No CCE. resists abd exam Laboratory Results - last 24 hr 01/12/19 01/12/19 01/13/19 16:57 21:34 06:11 POC Glucometer 104 116 199 01/13/19 11:43 POC Glucometer 300 Active Medications Generic Name Dose Route Start Last Admin Trade Name Freq PRN Reason Stop Dose Admin Acetaminophen 650 mg 01/11/19 15:58 01/13/19 07:29 Tylenol - PO 650 mg Q6H PRN Administration FEVER Insulin Aspart 1 vial 01/11/19 16:30 01/13/19 11:45 Novolog Vial Sliding Scale - SQ 6 units TIDAC ЕКАТЕРИНА Administration Protocol Insulin Detemir 30 units 01/12/19 07:00 01/13/19 06:12 Levemir Vial SQ 30 units AM ЕКАТЕРИНА Administration Morphine Sulfate 2 mg 01/11/19 15:03 01/13/19 11:02 Morphine 10 Mg/5 Ml Liquid PO 2 mg Q4H PRN Administration PAIN LEVEL 7 - 10 Non-Formulary Medication 4.5 mg 01/12/19 10:00 Cariprazine Hcl [Vraylar] PO DAILY ЕКАТЕРИНА Trazodone HCl 50 mg 01/12/19 07:00 01/13/19 06:13 Desyrel - PO 50 mg AM ЕКАТЕРИНА Administration Trazodone HCl 100 mg 01/11/19 22:00 01/12/19 21:36 Desyrel - PO 100 mg HS ЕКАТЕРИНА Administration ASSESSMENT/PLAN: The patient is a 78 yo f w/ PMH Dementia, TIA, COPD, DM, RA who comes was BIBA after falling and sustaining a laceration to the back of the neck. Patient was incidentally found to have a possible PNA. #Code Status -patient's and HCP (documents in chart) is in possession of an unsigned MOLST form detailing DNR/DNI and comfort measures only including no ABX , no IVF. -Signed living will in [place] papers details the same. -This code status confirmed this admission with . -Until signed MOLST obtained, has signed a DNR/DNI/comfort care paper - declining IVF, ABX, blood draws, additional diagnostic studies #s/p fall possibly 2/2 PNA vs orthostatic hypotension -patient not on blood thinners -initial CT head and c-spine negative for acute pathology. -laceration closed in ED -neuro checks #sepsis 2/2 possible PNA -tachycardic and tachypnic - CTAP-----> Bibasilar consolidation/atelectasis. -Tylenol PRN pain/fever -morphine po 2mg q4h PRN pain #DM -will continue FS and ISS. Levemir 30 U SQ AM. #FEN -no fluids -no blood draws, no lyte repletion -on dysphagia puree w/ nectar thick liquids. #Dispo -med surg -comfort care -Possible transfer to [place] for inpatient Hospice. Visit type - Emergency Visit Emergency Visit: Yes ED Registration Date: 01/11/19 Care time: The patient presented to the Emergency Department on the above date and was hospitalized for further evaluation of their emergent condition. - New Patient This patient is new to me today: No - Critical Care Critical Care patient: No - Discharge Referral Referred to [facility] Med P.C.: No
[2019-01-13] MEDS ORDERED: PT OWN MED DRAWER 7, Y5N ONE (19:57)
[2019-01-14] MEDS: INSULIN (LEVEMIR) 100 UNITS/ML UNITS SQ SCH (06:31)
[2019-01-14] MEDS: traZODone HCL 50 MG TABLET (FP) PO SCH ×2 (06:31→22:27)
[2019-01-14] MEDS: INSULIN SLIDING SCALE (NOVOLOG) 1 VIAL SQ SCH ×3 (06:32→17:17)
[2019-01-14] MEDS: morphine SULFATE 10 MG/5 ML UNIT-DOSE CUP PO PRN (08:37)
[2019-01-14] MEDS: CARIPRAZINE HCL 4.5 MG PO SCH (09:13)
[2019-01-14] MEDS: ACETAMINOPHEN 325 MG TABLET (FP) PO PRN ×2 (09:14→17:32)
[2019-01-14 10:58] VITALS: BMI 16.3
--- NOTE | 2019-01-14 16:37 | PN ---
Teaching Attending Note Name of Resident: Marcellus Krause ATTENDING PHYSICIAN STATEMENT I saw and evaluated the patient. I reviewed the resident's note and discussed the case with the resident. I agree with the resident's findings and plan as documented. SUBJECTIVE: Not able to obtain hx. OBJECTIVE: NAD CV: RRR, no MRG Ext: No edema Abd: soft, NT ASSESSMENT AND PLAN: 78 y/o lady with h/o dementia, TIA, COPD, HLP, Dm and other medical problems who presented form [facility] with an unwitnessed fall. 1- Unwitnessed fall 2- Scalp laceration s/p morgan. 3- Possible PNA 4- severe dementia 5- DM Plan : - Hospice/comfort care - insulin treatment levemir and SSI - No blood work, IV line, or ABx/IVF - hospice eval pending - placement when accepted by hospice
--- NOTE | 2019-01-14 17:12 | DS ---
Physical Exam: SUBJECTIVE: Patient seen and examined OBJECTIVE: Vital Signs Period Temp Pulse Resp BP Sys/Howell Pulse Ox Last 24 Hr 97.6 F-99.6 F 102-118 16-20 97-124/61-70 99-99 PHYSICAL EXAM GENERAL: The patient is awake, alert, and fully oriented, in no acute distress. HEAD: Normal with no signs of trauma. EYES: PERRL, extraocular movements intact, sclera anicteric, conjunctiva clear. ENT: Ears normal, nares patent, oropharynx clear without exudates, moist mucous membranes. NECK: Trachea midline, full range of motion, supple. LUNGS: Breath sounds equal, clear to auscultation bilaterally, no wheezes, no crackles, no accessory muscle use. HEART: Regular rate and rhythm, S1, S2 without murmur, rub or gallop. ABDOMEN: Soft, nontender, nondistended, normoactive bowel sounds, no guarding, no rebound, no hepatosplenomegaly, no masses. EXTREMITIES: 2+ pulses, warm, well-perfused, no edema. NEUROLOGICAL: Cranial nerves II through XII grossly intact. Normal speech, gait not observed. PSYCH: Normal mood, normal affect. SKIN: Warm, dry, normal turgor, no rashes or lesions noted. LABS Laboratory Results - last 24 hr 01/13/19 01/14/19 01/14/19 20:57 06:14 11:50 POC Glucometer 122 182 252 HOSPITAL COURSE: Date of Admission:01/11/19 Date of Discharge: 01/14/19 Discharge Summary Reason For Visit: SEPSIS;PNEUMONIA Current Active Problems Pneumonia (Acute) Sepsis (Acute) - Instructions - Home Medications Comprehensive Discharge Medication List: Ambulatory Orders Montelukast Na [Singulair -] 10 mg PO HS 05/12/14 Simvastatin [Zocor -] 40 mg PO HS 05/12/14 Cyanocobalamin [Vitamin B12 -] 1,000 mcg PO DAILY 03/06/17 Aspirin [ASA -] 81 mg PO DAILY #30 tab.chew 03/16/17 Cariprazine HCl [Vraylar] 4.5 mg PO DAILY 01/11/19 Insulin Detemir [Levemir Flextouch] 5 unit SQ HS 01/11/19 Insulin Detemir [Levemir Flextouch] 30 unit SQ AM 01/11/19 Ranitidine [Zantac -] 150 mg PO BID 01/11/19 traZODone HCL [Trazodone HCl] 50 mg PO AM 01/11/19 traZODone HCL [Trazodone HCl] 100 mg PO HS 01/11/19 - Discharge Referral Referred to [facility] Med P.C.: No
--- NOTE | 2019-01-14 17:35 | PN ---
Physical Exam: SUBJECTIVE: Patient seen and examined at bedside. No overnight events. OBJECTIVE: Vital Signs Period Temp Pulse Resp BP Sys/Howell Pulse Ox Last 24 Hr 97.9 F-99.6 F 104-118 16-20 110-124/62-70 99-99 GEN: NAD CV: RRR, S1S2 RESP: CTAB anteriorly Ext: No CCE. Laboratory Results - last 24 hr 01/13/19 01/14/19 01/14/19 20:57 06:14 11:50 POC Glucometer 122 182 252 01/14/19 17:16 POC Glucometer 123 Active Medications Generic Name Dose Route Start Last Admin Trade Name Freq PRN Reason Stop Dose Admin Acetaminophen 650 mg 01/11/19 15:58 01/14/19 17:32 Tylenol - PO 650 mg Q6H PRN Administration FEVER Insulin Aspart 1 vial 01/11/19 16:30 01/14/19 17:17 Novolog Vial Sliding Scale - SQ Not Given [facility] Protocol Insulin Detemir 30 units 01/12/19 07:00 01/14/19 06:31 Levemir Vial SQ 30 units AM ЕКАТЕРИНА Administration Non-Formulary Medication 4.5 mg 01/14/19 10:00 01/14/19 09:13 Cariprazine Hcl [Vraylar] PO 4.5 mg DAILY ЕКАТЕРИНА Administration Trazodone HCl 50 mg 01/12/19 07:00 01/14/19 06:31 Desyrel - PO 50 mg AM ЕКАТЕРИНА Administration Trazodone HCl 100 mg 01/11/19 22:00 01/13/19 21:11 Desyrel - PO 100 mg HS ЕКАТЕРИНА Administration ASSESSMENT/PLAN: The patient is a 78 yo f w/ PMH Dementia, TIA, COPD, DM, RA who comes was [facility] after falling and sustaining a laceration to the back of the neck. Patient was incidentally found to have a possible PNA. #s/p fall possibly 2/2 PNA vs orthostatic hypotension -initial CT head and c-spine negative for acute pathology. No ABX, no IVF. -code status confirmed this admission with upon admission. - declining IVF, ABX, blood draws, additional diagnostic studies -laceration closed in ED #sepsis 2/2 possible PNA -tachycardic and tachypnic - CTAP-----> Bibasilar consolidation/atelectasis. -Tylenol PRN pain/fever -morphine po 2mg q4h PRN pain #DM -will continue FS and ISS. Levemir 30 U SQ AM. #FEN -no fluids -no blood draws, no lyte repletion -on dysphagia puree w/ nectar thick liquids. #Dispo -med surg -comfort care -Patient accepted to Hospice at [facility]. Visit type - Emergency Visit Emergency Visit: Yes ED Registration Date: 01/11/19 Care time: The patient presented to the Emergency Department on the above date and was hospitalized for further evaluation of their emergent condition. - New Patient This patient is new to me today: No - Critical Care Critical Care patient: No - Discharge Referral Referred to [facility] Med P.C.: No
[2019-01-14] MEDS ORDERED: morphine SULFATE 10 MG/5 ML UNIT-DOSE CUP PO SCH (18:00)
[2019-01-14] MEDS ORDERED: morphine SULFATE 0.1 MG/0.5 ML *PEDIATRIC CONCENTRATION PO SCH (18:00)
[2019-01-15] MEDS: INSULIN (LEVEMIR) 100 UNITS/ML UNITS SQ SCH (06:31)
[2019-01-15] MEDS: traZODone HCL 50 MG TABLET (FP) PO SCH ×2 (06:31→23:00)
[2019-01-15] MEDS: INSULIN SLIDING SCALE (NOVOLOG) 1 VIAL SQ SCH ×3 (06:32→16:37)
[2019-01-15] MEDS: CARIPRAZINE HCL 4.5 MG PO SCH (09:23)
[2019-01-15] MEDS: ACETAMINOPHEN 325 MG TABLET (FP) PO PRN (09:42)
[2019-01-15] MEDS: morphine SULFATE 10 MG/5 ML UNIT-DOSE CUP PO PRN ×2 (10:56→15:01)
--- NOTE | 2019-01-15 11:04 | DS ---
Physical Exam: SUBJECTIVE: Patient seen and examined at bedside. No issues overnight. OBJECTIVE: Vital Signs Period Temp Pulse Resp BP Sys/Howell Pulse Ox Last 24 Hr 98.2 F-99.0 F 94-113 18-20 107-118/59-62 PHYSICAL EXAM GEN: Arousable, oriented only to self, minimal coherent interactions HEENT: PERRLA, MMM CV: RRR, S1S2 RESP: CTAB anteriorly Abd: soft, NT Neurologic: moving 4 extremities Psych: confused Ext: wwp, No CCE. LABS Laboratory Results - last 24 hr 01/14/19 01/14/19 01/15/19 11:50 17:16 06:25 POC Glucometer 252 123 258 HOSPITAL COURSE: Date of Admission:01/11/19 Patient is a 78 yo F w/ PMH Dementia, TIA, COPD, DM, RA who comes was [facility] after falling and sustaining a laceration to the back of the neck. Patient was incidentally found to have a possible PNA. Initial CT head and c-spine negative for acute pathology. She is cachectic and progressively failing nutritional support. Her , who is HCP, confirmed DNR/DNI code status and declined IVF , ABX, blood draws, additional diagnostic studies. Comfort measures were initiated and she was discharged to hospice care. Date of Discharge: 01/15/19 Minutes to complete discharge: 40 Discharge Summary Reason For Visit: SEPSIS;PNEUMONIA Current Active Problems Pneumonia (Acute) Sepsis (Acute) Condition: Guarded - Instructions Diet, Activity, Other Instructions: You were hospitalized for a fall. Your imaging was negative. You are being discharged to hospice care. You will receive your home morphine, trazodone, and vraylar for your comfort. Disposition: LONG TERM FACILITY - Home Medications Comprehensive Discharge Medication List: Ambulatory Orders Montelukast Na [Singulair -] 10 mg PO HS 05/12/14 Simvastatin [Zocor -] 40 mg PO HS 05/12/14 Cyanocobalamin [Vitamin B12 -] 1,000 mcg PO DAILY 03/06/17 Aspirin [ASA -] 81 mg PO DAILY #30 tab.chew 03/16/17 Cariprazine HCl [Vraylar] 4.5 mg PO DAILY 01/11/19 Insulin Detemir [Levemir Flextouch] 5 unit SQ HS 01/11/19 Insulin Detemir [Levemir Flextouch] 30 unit SQ AM 01/11/19 Ranitidine [Zantac -] 150 mg PO BID 01/11/19 traZODone HCL [Trazodone HCl] 50 mg PO AM 01/11/19 traZODone HCL [Trazodone HCl] 100 mg PO HS 01/11/19 This patient is new to me today: Yes Date on this admission: 01/15/19 Emergency Visit: No Critical Care patient: No - Discharge Referral Referred to [facility] Med P.C.: No
--- NOTE | 2019-01-15 18:14 | PN ---
Teaching Attending Note Name of Resident: Ever Sorensen ATTENDING PHYSICIAN STATEMENT I saw and evaluated the patient. I reviewed the resident's note and discussed the case with the resident. I agree with the resident's findings and plan as documented. SUBJECTIVE: Patient is demented , lying in bed comfortably with no acute distress. OBJECTIVE: Vital Signs Temperature 98.7 F 01/15/19 17:10 Pulse Rate 107 H 01/15/19 17:10 Respiratory Rate 18 01/15/19 17:10 Blood Pressure 133/78 01/15/19 17:10 O2 Sat by Pulse Oximetry (%) 98 01/15/19 09:00 GEN: Arousable, minimal interactions HEENT: PERRLA, MMM CV: RRR, S1S2 RESP: CTAB anteriorly Abd: soft, NT Neurologic: moving 4 extremities Psych: confused Ext: pulses are positive CBCD WBC 6.7 K/mm3 (4.0-10.0) 01/11/19 06:50 RBC 3.79 M/mm3 (3.60-5.2) 01/11/19 06:50 Hgb 12.3 GM/dL (10.7-15.3) 01/11/19 06:50 Hct 36.9 % (32.4-45.2) 01/11/19 06:50 MCV 97.3 fl (80-96) H 01/11/19 06:50 MCHC 33.5 g/dl (32.0-36.0) 01/11/19 06:50 RDW 14.1 % (11.6-15.6) 01/11/19 06:50 Plt Count 552 K/MM3 (134-434) H D 01/11/19 06:50 MPV 7.9 fl (7.5-11.1) 01/11/19 06:50 CMP Sodium 135 mmol/L (136-145) L 01/11/19 06:50 Potassium 4.7 mmol/L (3.5-5.1) 01/11/19 06:50 Chloride 97 mmol/L (98-107) L 01/11/19 06:50 Carbon Dioxide 27 mmol/L (21-32) 01/11/19 06:50 Anion Gap 12 MMOL/L (8-16) 01/11/19 06:50 BUN 11.6 mg/dL (7-18) 01/11/19 06:50 Creatinine 0.7 mg/dL (0.55-1.3) 01/11/19 06:50 Random Glucose 325 mg/dL (74-106) H* 01/11/19 06:50 Calcium 9.5 mg/dL (8.5-10.1) 01/11/19 06:50 Total Bilirubin 0.6 mg/dL (0.2-1) 01/11/19 06:50 AST 12 U/L (15-37) L 01/11/19 06:50 ALT 18 U/L (13-61) 01/11/19 06:50 Alkaline Phosphatase 169 U/L (45-117) H 01/11/19 06:50 Total Protein 7.8 g/dl (6.4-8.2) 01/11/19 06:50 Albumin 3.1 g/dl (3.4-5.0) L 01/11/19 06:50 CARDIAC ENZYMES Creatine Kinase 59 U/L (26-192) 01/11/19 06:50 Troponin I < 0.02 ng/ml (0.00-0.05) 01/11/19 06:50 Current Medications Generic Name Dose Route Start Last Admin Trade Name Freq PRN Reason Stop Dose Admin Acetaminophen 650 mg 01/11/19 15:58 01/15/19 09:42 Tylenol - PO 650 mg Q6H PRN Administration FEVER Insulin Aspart 1 vial 01/11/19 16:30 01/15/19 16:37 Novolog Vial Sliding Scale - SQ 2 units TIDAC ЕКАТЕРИНА Administration Protocol Insulin Detemir 30 units 01/12/19 07:00 01/15/19 06:31 Levemir Vial SQ 30 units AM ЕКАТЕРИНА Administration Morphine Sulfate 2 mg 01/14/19 19:00 01/15/19 15:01 Morphine 10 Mg/5 Ml Liquid PO 2 mg Q4H PRN Administration PAIN- Non-Formulary Medication 4.5 mg 01/14/19 10:00 01/15/19 09:23 Cariprazine Hcl [Vraylar] PO 4.5 mg DAILY ЕКАТЕРИНА Administration Trazodone HCl 50 mg 01/12/19 07:00 01/15/19 06:31 Desyrel - PO 50 mg AM ЕКАТЕРИНА Administration Trazodone HCl 100 mg 01/11/19 22:00 01/14/19 22:27 Desyrel - PO 100 mg HS [facility] Administration Home Medications Medication Instructions Recorded Montelukast Na [Singulair -] 10 mg PO HS 05/12/14 Simvastatin [Zocor -] 40 mg PO HS 05/12/14 Cyanocobalamin [Vitamin B12 -] 1,000 mcg PO DAILY 03/06/17 Aspirin [ASA -] 81 mg PO DAILY #30 tab.chew 03/16/17 Cariprazine HCl [Vraylar] 4.5 mg PO DAILY 01/11/19 Insulin Detemir [Levemir Flextouch] 5 unit SQ HS 01/11/19 Insulin Detemir [Levemir Flextouch] 30 unit SQ AM 01/11/19 Ranitidine [Zantac -] 150 mg PO BID 01/11/19 traZODone HCL [Trazodone HCl] 50 mg PO AM 01/11/19 traZODone HCL [Trazodone HCl] 100 mg PO HS 01/11/19 ASSESSMENT AND PLAN: Patient is a 78yo female with h/o dementia, TIA, COPD, HLP, Dm presented from [address] [place] [address] Living with an unwitnessed fall. # Unwitnessed fall with Scalp laceration s/p morgan. Hospice/comfort care # Possible PNA # severe dementia # DM: continue levemir and SSI No blood work, IV line, or ABx/IVF as per family hospice eval pending placement when accepted by hospice
[2019-01-16] MEDS: traZODone HCL 50 MG TABLET (FP) PO SCH ×2 (06:56→06:58)
[2019-01-16] MEDS: INSULIN (LEVEMIR) 100 UNITS/ML UNITS SQ SCH (07:03)
[2019-01-16] MEDS: INSULIN SLIDING SCALE (NOVOLOG) 1 VIAL SQ SCH ×2 (07:06→11:26)
[2019-01-16] MEDS: CARIPRAZINE HCL 4.5 MG PO SCH (09:40)
[2019-01-16] MEDS ORDERED: PT OWN MED DRAWER 7, Y5N ONE (09:45)
--- NOTE | 2019-01-16 11:50 | PN ---
Progress Note (short form) - Note Progress Note: Patient was discharged yesterday to hospice but placement was delayed overnight. Clinical evaluation is unchanged this morning. Please refer to discharge summary.
[2019-01-16 12:03] VITALS: BP 90/54; PULSE 108; TEMP 97.9
--- NOTE | 2019-01-16 15:34 | PN ---
Teaching Attending Note Name of Resident: Ever Sorensen ATTENDING PHYSICIAN STATEMENT I saw and evaluated the patient. I reviewed the resident's note and discussed the case with the resident. I agree with the resident's findings and plan as documented. SUBJECTIVE: Patient is comfortable with no acute distress, no shortness of breath. OBJECTIVE: Vital Signs Temperature 97.9 F 01/16/19 10:00 Pulse Rate 108 H 01/16/19 10:00 Respiratory Rate 18 01/16/19 10:00 Blood Pressure 90/54 L 01/16/19 10:00 O2 Sat by Pulse Oximetry (%) 91 L 01/16/19 09:00 Initial Vital Signs Temp Pulse Resp BP Pulse Ox 97.6 F 126 H 18 171/101 H 95 01/11/19 06:13 01/11/19 06:13 01/11/19 06:13 01/11/19 06:13 01/11/19 06:13 GEN: Arousable, minimal interactions HEENT: PERRLA, MMM CV: RRR, S1S2 RESP: CTAB anteriorly Abd: soft, NT, BS positive Neurologic: moving 4 extremities Psych: confused, with dementia Ext: pulses are positive CBCD WBC 6.7 K/mm3 (4.0-10.0) 01/11/19 06:50 RBC 3.79 M/mm3 (3.60-5.2) 01/11/19 06:50 Hgb 12.3 GM/dL (10.7-15.3) 01/11/19 06:50 Hct 36.9 % (32.4-45.2) 01/11/19 06:50 MCV 97.3 fl (80-96) H 01/11/19 06:50 MCHC 33.5 g/dl (32.0-36.0) 01/11/19 06:50 RDW 14.1 % (11.6-15.6) 01/11/19 06:50 Plt Count 552 K/MM3 (134-434) H D 01/11/19 06:50 MPV 7.9 fl (7.5-11.1) 01/11/19 06:50 CMP Sodium 135 mmol/L (136-145) L 01/11/19 06:50 Potassium 4.7 mmol/L (3.5-5.1) 01/11/19 06:50 Chloride 97 mmol/L (98-107) L 01/11/19 06:50 Carbon Dioxide 27 mmol/L (21-32) 01/11/19 06:50 Anion Gap 12 MMOL/L (8-16) 01/11/19 06:50 BUN 11.6 mg/dL (7-18) 01/11/19 06:50 Creatinine 0.7 mg/dL (0.55-1.3) 01/11/19 06:50 Random Glucose 325 mg/dL (74-106) H* 01/11/19 06:50 Calcium 9.5 mg/dL (8.5-10.1) 01/11/19 06:50 Total Bilirubin 0.6 mg/dL (0.2-1) 01/11/19 06:50 AST 12 U/L (15-37) L 01/11/19 06:50 ALT 18 U/L (13-61) 01/11/19 06:50 Alkaline Phosphatase 169 U/L (45-117) H 01/11/19 06:50 Total Protein 7.8 g/dl (6.4-8.2) 01/11/19 06:50 Albumin 3.1 g/dl (3.4-5.0) L 01/11/19 06:50 CARDIAC ENZYMES Creatine Kinase 59 U/L (26-192) 01/11/19 06:50 Troponin I < 0.02 ng/ml (0.00-0.05) 01/11/19 06:50 Home Medications Medication Instructions Recorded Montelukast Na [Singulair -] 10 mg PO HS 05/12/14 Simvastatin [Zocor -] 40 mg PO HS 05/12/14 Cyanocobalamin [Vitamin B12 -] 1,000 mcg PO DAILY 03/06/17 Aspirin [ASA -] 81 mg PO DAILY #30 tab.chew 03/16/17 Cariprazine HCl [Vraylar] 4.5 mg PO DAILY 01/11/19 Insulin Detemir [Levemir Flextouch] 5 unit SQ HS 01/11/19 Insulin Detemir [Levemir Flextouch] 30 unit SQ AM 01/11/19 Ranitidine [Zantac -] 150 mg PO BID 01/11/19 traZODone HCL [Trazodone HCl] 50 mg PO AM 01/11/19 traZODone HCL [Trazodone HCl] 100 mg PO HS 01/11/19 ASSESSMENT AND PLAN: Patient is a 78yo female with h/o dementia, TIA, COPD, HLP, Dm presented from [address] [place] [address] Living with an unwitnessed fall. # Unwitnessed fall with Scalp laceration s/p morgan. is being discharged to hospice for comfort care # Possible PNA # severe dementia # DM: continue levemir and SSI No blood work, IV line, or ABx/IVF as per family.
== END 2019-01-16 12:15 | DRG 604 ==
LOC: JER 05:52 → JERBED 11:10 → J8W 13:08
PROVIDERS: ADMIT Internal Medicine; ATTEND Internal Medicine
PROC: 0HQ0XZZ Repair Scalp Skin, External Approach (ICD-10-PCS; principal; 2019-01-11)
DX: S01.01XA Laceration without foreign body of scalp, initial encounter (principal); J18.9 Pneumonia, unspecified organism; E87.2 Acidosis; J98.11 Atelectasis; R64 Cachexia; Z68.1 Body mass index [BMI] 19.9 or less, adult; S91.114A Laceration without foreign body of right lesser toe(s) without damage to nail, initial encounter; E11.9 Type 2 diabetes mellitus without complications; R29.6 Repeated falls; F03.90 Unspecified dementia, unspecified severity, without behavioral disturbance, psychotic disturbance, mood disturbance, and anxiety; Z86.73 Personal history of transient ischemic attack (TIA), and cerebral infarction without residual deficits; J44.9 Chronic obstructive pulmonary disease, unspecified; E78.5 Hyperlipidemia, unspecified; M06.9 Rheumatoid arthritis, unspecified; Z79.4 Long term (current) use of insulin; W01.0XXA Fall on same level from slipping, tripping and stumbling without subsequent striking against object, initial encounter; Y93.89 Activity, other specified; Y92.128 Other place in nursing home as the place of occurrence of the external cause; Y99.8 Other external cause status
CPT/HCPCS: 36415; 70450-TC; 71045-TC-FY; 72125-TC; 73523-TC-FY; 74176-TC; 80053; 81003; 82550; 82553; 82803; 82962; 83605; 84484; 85025; 85610; 85730; 86850; 86900; 86901; 87040; 87086; 93005; 93010; 99284-25; J0131; J7030